=== PATIENT | male | born 1945 | race Caucasian/White ===

== ENCOUNTER 2024-06-24 15:09 | Inpatient (IN) ==
[2024-06-24 16:17] LABS: Base Excess VBG -2.9 mEq/L; HCO3 VBG 21 mmol/L; Oxygen Saturation VBG 92.6 %; PCO2 VBG 33 mmHg (38-50); PO2 VBG 76 mmHg; pH VBG 7.41 (7.36-7.41)
[2024-06-24 16:31] LABS: Basophils # (auto) 0.04 K/uL (0.00-0.20); Basophils % (auto) 0.2 %; Eosinophils # (auto) 0.04 K/uL (0.00-0.50); Eosinophils % (auto) 0.2 %; Hematocrit (blood only) 32.4 % (42.0-52.0); Hemoglobin 10.6 g/dl (14.0-18.0); Immature Granulocytes % (auto) 1.7 %; Lymphocytes # (auto) 0.41 K/uL (1.20-3.40); Lymphocytes % (auto) 2.3 %; Mean Corpuscular Hemoglobin 31.9 pg (25.0-34.0); Mean Corpuscular Hgb Conc 32.7 g/dL (32.0-36.0); Mean Corpuscular Volume 97.6 fL (80.0-100.0); Mean Platelet Volume 9.3 fL (9.4-12.4); Monocytes # (auto) 1.03 K/uL (0.11-0.59); Monocytes % (auto) 5.9 %; Neutrophils # (auto) 15.64 K/uL (1.40-6.50); Neutrophils % (auto) 89.7 %; Nucleated RBC # (auto) 0.03 K/uL (0.00-0.12); Nucleated RBC % (auto) 0.2 %; Platelet Count 130 K/uL (130-400); RDW Coefficient of Variation 14.9 % (11.5-14.5); RDW Standard Deviation 53.1 fL (36.4-46.3); Red Blood Count 3.32 M/uL (4.70-6.10); White Blood Count 17.46 K/ul (4.8-10.8)
[2024-06-24 16:40] LABS: BUN Creatinine Ratio 20.5 (10-20); Calcium 9.5 mg/dl (8.6-10.3); Creatinine Clr Calc Pharmacy 20.6 ml/min; Est GFR (African American) 19.2 ml/min; Est GFR (Non-African American) 16.6 ml/min; Potassium 4.2 mmol/L (3.5-5.1)
[2024-06-24 16:48] LABS: Troponin I High Sensitivity 57.4 pg/ml (0-20)
[2024-06-24 16:50] LABS: Partial Thromboplastin Time 27 Seconds (21-31); Prothrombin Time 11.1 Seconds (9.0-12.0)
--- NOTE | 2024-06-24 16:52 | XRay Report ---
XR chest 2V PA/lateral CLINICAL HISTORY: Chest pain, nonspecific TECHNIQUE: 2 views of the chest were obtained. Comparison: Comparison is made to chest radiograph 07/20/2010 FINDINGS: No lines and tubes are seen. The cardiomediastinal silhouette is normal. The lungs are clear. No evid ence of pleural effusion or pneumothorax. IMPRESSION: No acute chest disease. ACT 112: Negative or not required by law. Electronically signed by: Gomez Ortez M.D. 06/24/2024 4:50 PM
[2024-06-24 16:53] LABS: Influenza A virus by PCR Negative (Neg); Influenza B virus by PCR Negative (Neg); RSV by PCR Negative (Neg); SARS CoV2 RNA(COVID-19) Ceph NEGATIVE (Negative)
[2024-06-24 17:09] LABS: D Dimer 3520 ug/L FEU (0-500)
[2024-06-24 17:28] LABS: Appearance Urine Cloudy (Clear); Bacteria Urine Automated None Seen (None Seen); Bilirubin Urine Negative (Negative); Blood Urine 3+ (Negative); Color Urine Yellow; Glucose Urine UA 1+ (Negative); Ketones Urine Negative (Negative); Leukocyte Esterase Urine Negative (Negative); Nitrite Urine Negative (Negative); Protein Urine 3+ (Negative); RBC Urine Automated 0-2 /hpf (0-2); Specific Gravity Urine 1.019 (1.000-1.030); Urobilinogen Urine Negative (Negative); WBC Urine Automated 0-5 /hpf (0-5); pH Urine 5.5 (4.5-7.5)
--- NOTE | 2024-06-24 17:31 | History & Physical Report ---
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 CBC, BMP, mag (2) Acute kidney injury superimposed on chronic kidney disease: Plan: BUN 68, creatinine 3.32 (he reports that his baseline is around 1.9), EGFR 16.6 Avoid nephrotoxic agents where possible Hx of kidney stones, but denies flank pain or new back pain A/P CT without contrast ordered, pending Hold lisinopril Gentle IVF overnight and continue to trend BMP (3) Hematuria: Plan: 1 episode of urinary/fecal incontinence due to patient's inability get out of bed Not bulmaro incontinence Patient knew that he needed to use the restroom, but was unable to get up due to weakness/back pain UA 3+ blood on arrival Hgb 10.6 on arrival; continue to trend H&H Patient reports he had blood clots in his urine on the evening of 06/23; ?passed nephrolithiasis at this time (4) Leukocytosis: Plan: Leukocytosis 17.46 with neutrophil predominance; afebrile However, patient is currently on steroids; leukocytosis may be secondary to this UA negative for bacteria CXR without acute findings, but given SOB potential occult PNA Chest CT pending (5) Anemia: (6) Prostate cancer: (7) Hyperlipidemia: (8) Hypertension: (9) CKD (chronic kidney disease): (10) Elevated troponin: Plan Disposition: Admit to [facility] telemetry Full code Heart healthy diet VTE PPx: Heparin pending above imaging/labs History of Present Illness Chief Complaint: SOB, urinary/fecal incontinence, hematuria Primary Care Provider: Lucille Rodriguez MD Armando is a pleasant 78-year-old male with PMH of HLD, HTN, prostate cancer, left upper lobe lung cancer, COPD, and CKD. He presented on 06/24 for SOB x 1 month with an acute exacerbation on the evening of 06/23. Patient's (Maryann) is at the bedside and provides additional updates. She reports that his breathing worsened around 9 PM. He then experienced an episode of bowel/urinary incontinence while in bed around 3 AM; patient reportedly woke up in bed and felt the urge to go, but felt his body was too weak to get up. Patient reports his breathing has been worse over the past month; he denies SOB at rest, and reports it is only with exertion. It is not worse when he lies flat on his back. Patient lives in [place], but returned to [place] 1 month ago. 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 Patient has all his labs drawn in [place], and believes that his creatinine baseline is around 1.9. He was also recently diagnosed with COPD (PFTs in [place]), and has been on 2 inhalers since around April 12. He denies being around any sick contacts recently. No supplemental oxygen at baseline. No CPAP at night. Patient did not take his regular morning medications today; no recent change in medications. He does take Zytiga (an androgen kumar) for his prostate cancer, and also reports that he takes prednisone daily for the Zytiga. He is a former current tobacco cigarette smoker; quit 15 years ago. No recent alcohol use. No recent change in diet; patient does not watch his salt intake, but denies any recent changes in weight. He does have a history of kidney stones, with the last been being around 20 years ago. He has chronic lower back pain; no recent change in back pain. No saddle anesthesia. 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 No history of [place] or CHF to his knowledge; he does have heart stents and takes aspirin daily. Reports compliance with this. Patient's vitals are stable at time admission. ED course: ROS: Patient endorses essential tremor (chronic, but worse the past 24h), lightheaded with walking, fatigue, worsening LAST, one episode of urinary/fecal incontinence, lower back pain (chronic; not new, per patient), blood clot in urine, and mild b/l leg swelling. Patient denies fever, chills, night-sweats, dizziness, headache, changes in vision, chest pain, SOB, cough, pleuritic CP, hemoptysis, abdominal pain, N/V/D, blood in stool, saddle anesthesia, or erythema/numbness/tingling in the legs. Allergies Allergy/AdvReac Type Severity Reaction Status Date / Time regadenoson [From Fatsoma] Allergy Severe Anaphylaxis Verified 06/24/24 19:33 Sulfa (Sulfonamide Allergy Unknown UNKNOWN Verified 06/24/24 19:30 Antibiotics) Home Medications Medication Instructions Recorded Confirmed Type ascorbic acid (vitamin C) 1,000 mg 1 g PO Q6H #120 tabs 08/25/21 06/24/24 Rx tablet aspirin 81 mg tablet,delayed 81 mg PO DAILY #30 tabs 08/25/21 06/24/24 Rx release cholecalciferol (vitamin D3) 25 25 mcg PO DAILY #30 caps 08/25/21 06/24/24 Rx mcg (1,000 unit) capsule ferrous sulfate 325 mg (65 mg 325 mg PO DAILY #30 tabs 08/25/21 06/24/24 Rx iron) tablet (FeroSul) lisinopril 20 mg tablet 20 mg PO BID #60 tabs 08/25/21 06/24/24 Rx xhefcjvy-soa-cjlbg acid 0.4 1 tab PO DAILY #30 tabs 08/25/21 06/24/24 Rx mg-lycopene 300 mcg-lutein 250 mcg tablet (Centrum Silver) omega 0-uqr-zfm-fish oil 1,200 mg 1 cap PO DAILY #30 caps 08/25/21 06/24/24 Rx (144 mg-216 mg) capsule (Fish Oil) albuterol sulfate 90 mcg/actuation 2 puff inhalation Q4H PRN 06/24/24 06/24/24 History aerosol inhaler wheezing/SOB amlodipine 5 mg tablet (Norvasc) 5 mg PO BID 06/24/24 06/24/24 History clonidine HCl 0.1 mg tablet 0.1 mg PO BID 06/24/24 06/24/24 History coQ10 (ubiquinol) 200 mg capsule 200 mg PO DAILY 06/24/24 06/24/24 History dapagliflozin propanediol 10 mg 0 mg PO HS 06/24/24 06/24/24 History tablet (Farxiga) fluticasone fur. 200 mcg-umeclid 1 inh inhalation DAILY 06/24/24 06/24/24 History 62.5 mcg-vilant 25 mcg inhalat.powder (Trelegy Ellipta) nebivolol 20 mg tablet 20 mg PO DAILY 06/24/24 06/24/24 History omeprazole 20 mg-sodium 1 cap PO DAILY 06/24/24 06/24/24 History bicarbonate 1.1 gram capsule (Zegerid OTC) rosuvastatin 20 mg tablet 20 mg PO DAILY 06/24/24 06/24/24 History Past Med/Surg History Problem List (Updated 06/24/24 @ 20:06 by Roberto Lambert PA-C) Elevated troponin Acute kidney injury superimposed on CKD (Acute) Leukocytosis Acute kidney injury superimposed on chronic kidney disease SOB (shortness of breath) (Acute) Hematuria Anemia CKD (chronic kidney disease) Prostate cancer Hypertension Hyperlipidemia Medical History Peritonitis Surgical History S/P cataract extraction S/P abdominoplasty S/P partial colectomy S/P lumbar fusion S/P cervical spinal fusion S/P shoulder replacement Family History Other Diabetes Denies family history of Ovarian cancer Prostate cancer Myocardial infarction Breast cancer Colorectal cancer Social History Smoking Status: Former smoker Hx Alcohol Use: Yes Hx Substance Use: No Preferred Language: [place]ian Visual Impairment: No Limitations Hearing Ability: Normal marital status: Current Living Situation: Spouse current occupational status: employed Feels Safe at Home: Yes Dental Care, Regularly: Yes Physical Activity Frequency: 5-6 Times per Week Seatbelt Use: always Review of Systems Review of Systems: See HPI above Physical Exam Physical Exam: General: no acute distress; pleasant affect; non-toxic appearing; well- nourished; cooperative; SpO2 93% on RA HEENT: normocephalic, atraumatic; no scleral icterus; PERRLA; vision and hearing grossly intact Neck: supple; no lymphadenopathy; trachea midline Skin: warm, dry without signs of tenting; no cyanosis; no rashes, bruising, lesions, or erythema noted CV: chest wall NTP; RRR; S1/S2 normal; no murmurs/rubs/gallops; pulses intact and symmetric at radial, DP, and PT Lungs: no acute respiratory distress; symmetrical chest wall expansion; clear breath sounds across all lung payne w/o adventitious sounds; no wheezing ABD: Soft, NTP; BS present; no rebound/guarding; no distention MSK: no tics or fasciculations; left calf/ankle is slightly more swollen than the right, nonerythematous Neuro: A&Ox3; essential tremor noted in the left hand; normal mood and affect; fluent speech; no focal deficits; sensation grossly intact in the LEs b/l Results & Data Results & Data Vital Signs (Past 12 Hours) Vital Signs Temp Pulse Pulse Resp BP BP Pulse Ox 06/24/24 17:05 69 18 119/69 93 06/24/24 15:56 72 06/24/24 15:55 93 06/24/24 15:35 75 19 111/73 93 06/24/24 15:12 36.7 C 81 18 134/72 95 O2 Del Method 06/24/24 17:05 Room Air 06/24/24 15:56 06/24/24 15:55 Room Air 06/24/24 15:35 Room Air 06/24/24 15:12 Room Air Laboratory Results Abnormal lab results 06/24/24 06/24/24 06/24/24 Range/Units 15:40 16:05 16:24 WBC 17.46 H (4.8-10.8) K/ul RBC 3.32 L (4.70-6.10) M/uL Hgb 10.6 L (14.0-18.0) g/dl Hct 32.4 L (42.0-52.0) % RDW Std Deviation 53.1 H (36.4-46.3) fL RDW Coeff of Aniceto 14.9 H (11.5-14.5) % MPV 9.3 L (9.4-12.4) fL Neut # (Auto) 15.64 H (1.40-6.50) K/uL Lymph # (Auto) 0.41 L (1.20-3.40) K/uL Newton # (Auto) 1.03 H (0.11-0.59) K/uL Immature Gran # (Auto) 0.30 H (0.01-0.20) K/uL D-Dimer 3520 H* (0-500) ug/L FEU VBG pCO2 33 L (38-50) mmHg Chloride 108 H (98-107) mmol/L BUN 68 H (6-23) mg/dl Creatinine 3.32 H (0.6-1.4) mg/dl BUN/Creatinine Ratio 20.5 H (10-20) Troponin I High Sens 57.4 H* (0-20) pg/ml B-Natriuretic Peptide 674 H (0-100) pg/ml Urine Appearance Cloudy A (Clear) Urine Protein 3+ H (Negative) Urine Glucose (UA) 1+ H (Negative) Urine Blood 3+ H (Negative) U Hyaline Cast (Auto) 6-10 H (0-2) /lpf U Epithel Cells (Auto) 6-10 H (0-2) /hpf Diagnostic Findings Chest X-Ray 06/24/24 15:54 XR chest 2V PA/lateral CLINICAL HISTORY: Chest pain, nonspecific TECHNIQUE: 2 views of the chest were obtained. Comparison: Comparison is made to chest radiograph 07/20/2010 FINDINGS: No lines and tubes are seen. The cardiomediastinal silhouette is normal. The lungs are clear. No evidence of pleural effusion or pneumothorax. IMPRESSION: No acute chest disease. ACT 112: Negative or not required by law. Electronically signed by: Gomez Ortez M.D. 06/24/2024 4:50 PM ECG Additional Comments: ECG revealed sinus rhythm with PACs in a pattern of bigeminy at 72 bpm; QTc 396 Code Status & VTE Plan Code Status Full code VTE Prophylaxis Plan VTE Prophylaxis will be ordered: Yes Supervising Physician Co-Signing Physician Notes I have personally seen, evaluated and examined the patient. I have also personally discussed the management of the patient with the resident physician/GURPREET and I agree with the exam findings documented in the history and physical examination and the documented assessment and plan unless otherwise stated below. Brief Exam: In general very pleasant 78-year-old gentleman is alert and oriented x 3 at the time of my exam is accompanied by his at the time of my examination. Says he woke up in the middle night with severe low back pain. He was unable to get out of bed to use the restroom and had "an accident". When he did passed a blood clot he said it was like a cork being pulled. Question whether or not patient may be passed a kidney stone last night?. HEENT: Normocephalic atraumatic. Heart: Regular rate and rhythm. Lungs: Clear bilaterally. Abdomen: Soft nontender positive bowel sounds no appreciable organomegaly. Extremities intact with no significant edema Neurologically is alert and oriented x 3 at the time of my examination. Assessment/plan: As described above. 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 He reports that his baseline creatinine 1.9. He states that his barrel filler in [place] gave him an outpatient slip to get a CTA of his chest given his shortness of breath with exertion. He is yet to have that done. Shortly now we cannot progress with a CTA of the chest given the acute kidney injury. If the CAT scans of the abdomen pelvis and chest are unremarkable and if his ultrasounds of his legs are unremarkable due to the high D-dimer, we would recommend a VQ scan in the morning. The patient is on chronic prednisone therapy the patient reports a chronic prednisone use due to prostate cancer his urologist has him on this. If his blood pressures are dropping consider stress dose steroids. CTs are pending as well as ultrasounds pending at the time of this dictation. Please refer to orders for further planning. PG Care Time/CCT Total # of Minutes Spent Total Time Spent with Patient: Total time spent is greater than 50% in coordination of care (as documented) at patient's floor/unit and/or counseling patient: [place] [address] INT INP/OBS CARE 3/75MIN Patient Type New History Comprehensive Exam Comprehensive Medical Decision Making High Complexity Diagnoses SOB (shortness of breath) R06.02 Acute kidney injury superimposed on chronic kidney disease N17.9; N18.9 Hematuria R31.9 Leukocytosis D72.829 Anemia D64.9 Prostate cancer C61 Hyperlipidemia E78.5 Hypertension I10 CKD (chronic kidney disease) N18.9 Elevated troponin R79.89
--- NOTE | 2024-06-24 18:48 | Emergency Department Note ---
History of Present Illness General Chief Complaint: Shortness of Breath/Dyspnea Stated Complaint: SOB, INCONSTIENCE, LETHARGIC Time Seen by Provider: 06/24/24 15:35 History of Present Illness Provider Complaint: shortness of breath Onset (ago): day(s) (1) Severity: moderate Relieved By: + nothing Known history of: COPD Associated symptoms: + wheezing; no fever, no sputum production, no polyuria, no palpitations, no hemoptysis, no abdominal pain or no chest congestion Related Data Home oxygen amount: none Home Medications Medication Instructions Recorded Confirmed Type amlodipine 5 mg tablet (Norvasc) 5 mg PO DAILY #30 tabs 08/25/21 08/25/21 Rx ascorbic acid (vitamin C) 1,000 mg 1 g PO Q6H #120 tabs 08/25/21 08/25/21 Rx tablet aspirin 81 mg tablet,delayed 81 mg PO DAILY #30 tabs 08/25/21 08/25/21 Rx release cholecalciferol (vitamin D3) 25 25 mcg PO DAILY #30 caps 08/25/21 08/25/21 Rx mcg (1,000 unit) capsule clonidine HCl 0.1 mg tablet 0.1 mg PO QPM #30 tabs 08/25/21 08/25/21 Rx ferrous sulfate 325 mg (65 mg 325 mg PO DAILY #30 tabs 08/25/21 08/25/21 Rx iron) tablet (FeroSul) lisinopril 20 mg tablet 20 mg PO BID #60 tabs 08/25/21 08/25/21 Rx metoprolol succinate 50 mg 50 mg PO BID #60 tabs 08/25/21 08/25/21 Rx tablet,extended release 24 hr (Toprol XL) aixiqygp-tct-zenbg acid 0.4 1 tab PO DAILY #30 tabs 08/25/21 08/25/21 Rx mg-lycopene 300 mcg-lutein 250 mcg tablet (Centrum Silver) omega 2-yot-bzb-fish oil 1,200 mg 1 cap PO DAILY #30 caps 08/25/21 08/25/21 Rx (144 mg-216 mg) capsule (Fish Oil) omeprazole 20 mg capsule,delayed 20 mg PO DAILY #30 caps 08/25/21 08/25/21 Rx release rosuvastatin 20 mg tablet (Crestor) 20 mg PO DAILY #30 tabs 08/25/21 08/25/21 Rx Allergies Allergy/AdvReac Type Severity Reaction Status Date / Time regadenoson [From Lexiscan] Allergy Mild Anaphylaxis Verified 08/25/21 15:00 Sulfa (Sulfonamide Allergy Unknown UNKNOWN Verified 08/25/21 15:00 Antibiotics) Past Med/Surg History Problem List (Updated 06/24/24 @ 18:48 by Gary Aguero MD) Acute kidney injury superimposed on CKD (Acute) Leukocytosis Acute kidney injury superimposed on chronic kidney disease SOB (shortness of breath) (Acute) Urinary incontinence Hematuria Anemia CKD (chronic kidney disease) Prostate cancer Hypertension Hyperlipidemia Medical History Peritonitis Surgical History S/P cataract extraction S/P abdominoplasty S/P partial colectomy S/P lumbar fusion S/P cervical spinal fusion S/P shoulder replacement Family History Other Diabetes Denies family history of Ovarian cancer Prostate cancer Myocardial infarction Breast cancer Colorectal cancer Social History Smoking Status: Former smoker Hx Alcohol Use: Yes Hx Substance Use: No Preferred Language: Serbian Visual Impairment: No Limitations Hearing Ability: Normal marital status: Current Living Situation: Spouse current occupational status: employed Feels Safe at Home: Yes Dental Care, Regularly: Yes Physical Activity Frequency: 5-6 Times per Week Seatbelt Use: always Physical Exam 2 Vital Signs: Vital Signs - 24 hr 06/24/24 15:12 06/24/24 15:35 06/24/24 15:55 Temperature 36.7 C Temperature Source Skin Pulse Rate 81 Pulse Rate [Apical ] 75 Pulse Rhythm Regular Pulse Strength Normal Respiratory Rate 18 19 Respiratory Depth Normal Blood Pressure 134/72 Blood Pressure [Le ft Arm] 111/73 Blood Pressure Lisa n 92 Blood Pressure Lisa n [Left Arm] 85 Blood Pressure Pos ition Sitting Pulse Oximetry 95 93 93 Oxygen Delivery Me thod Room Air Room Air Room Air Sepsis Recent Feve r Within 48 Hours No Sepsis New/Unexpla ined Change in Men tanner Status No Sepsis Action Take n by Nursing No Action Required 06/24/24 15:56 06/24/24 17:05 06/24/24 17:30 Temperature Temperature Source Pulse Rate 72 Pulse Rate [Apical ] 69 71 Pulse Rhythm Pulse Strength Respiratory Rate 18 14 Respiratory Depth Blood Pressure Blood Pressure [Le ft Arm] 119/69 119/70 Blood Pressure Lisa n Blood Pressure Lisa n [Left Arm] 85 86 Blood Pressure Pos ition Pulse Oximetry 93 94 Oxygen Delivery Me thod Room Air Room Air Sepsis Recent Feve r Within 48 Hours Sepsis New/Unexpla ined Change in Men tanner Status Sepsis Action Take n by Nursing 06/24/24 18:00 Temperature Temperature Source Pulse Rate Pulse Rate [Apical ] 66 Pulse Rhythm Pulse Strength Respiratory Rate 18 Respiratory Depth Blood Pressure Blood Pressure [Le ft Arm] 138/74 Blood Pressure Lisa n Blood Pressure Lisa n [Left Arm] 95 Blood Pressure Pos ition Pulse Oximetry 93 Oxygen Delivery Me thod Room Air Sepsis Recent Feve r Within 48 Hours Sepsis New/Unexpla ined Change in Men tanner Status Sepsis Action Take n by Nursing Physical Exam: Physical Exam GENERAL: oriented to person, place, and time. appears well-developed and well- nourished. HENT: Exam performed. - Head: Normocephalic and atraumatic. EYES: Conjunctivae and EOM are normal. Right eye exhibits no discharge. Left eye exhibits no discharge. No scleral icterus. NECK: Normal range of motion. Neck supple. No JVD present. CV: Normal rate, regular rhythm, normal heart sounds and intact distal pulses. There is no peripheral edema. Palpable radial pulses bue. PULM/CHEST: Effort normal and breath sounds normal. No respiratory distress. No stridor. no wheezes. no rales. ABD: The abdomen is soft. There is no tenderness. NEURO: Motor and sensation grossly intact. SKIN: Skin is warm and dry. He is not diaphoretic. PSYCH: normal mood and affect. Behavior is normal. Judgment and thought content normal. Course Course 1535: The patient was evaluated in room A9. A complete history and physical exam was performed Cardiac monitoring: An order was placed for continuous cardiac monitoring. The monitor shows a rate of 70 with sinus rhythm interpreted by me 1740: Vital signs stable. Labs show leukocytosis of 17.46. Hemoglobin 10.6. D-dimer 3520. VBG shows a venous pH of 7.41 with a venous pCO2 of 33. Electrolytes are within normal limits. BNP 674. High-sensitivity troponin 57.4. Creatinine 3.32. Patient reports his creatinine is usually around 1.9. Urinalysis does not show any bacteria in it. COVID-negative. Patient not reporting any abdominal pain. Chest x-ray reviewed by me shows mild fluid overload however formal radiology read states there is no fluid overload. [facility] who states he will evaluate the patient for admission. Medical Decision Making Laboratory Data Attestation: I reviewed the patient's lab results. 06/24/24 15:40 06/24/24 15:40 Lab Results 06/24/24 06/24/24 06/24/24 Range/Units 15:40 16:04 16:05 WBC 17.46 H (4.8-10.8) K/ul RBC 3.32 L (4.70-6.10) M/uL Hgb 10.6 L (14.0-18.0) g/dl Hct 32.4 L (42.0-52.0) % MCV 97.6 (80.0-100.0) fL MCH 31.9 (25.0-34.0) pg MCHC 32.7 (32.0-36.0) g/dL RDW Std Deviation 53.1 H (36.4-46.3) fL RDW Coeff of Aniceto 14.9 H (11.5-14.5) % Plt Count 130 (130-400) K/uL MPV 9.3 L (9.4-12.4) fL Immature Gran % (Auto) 1.7 % Neut % (Auto) 89.7 % Lymph % (Auto) 2.3 % Ransom % (Auto) 5.9 % Eos % (Auto) 0.2 % Baso % (Auto) 0.2 % Neut # (Auto) 15.64 H (1.40-6.50) K/uL Lymph # (Auto) 0.41 L (1.20-3.40) K/uL Ransom # (Auto) 1.03 H (0.11-0.59) K/uL Eos # (Auto) 0.04 (0.00-0.50) K/uL Baso # (Auto) 0.04 (0.00-0.20) K/uL Immature Gran # (Auto) 0.30 H (0.01-0.20) K/uL Absolute Nucleated RBC 0.03 (0.00-0.12) K/uL Nucleated RBC % (auto) 0.2 % PT 11.1 (9.0-12.0) Seconds INR 1.0 (0.9-1.1) APTT 27 (21-31) Seconds PTT Ratio 1.0 D-Dimer 3520 H* (0-500) ug/L FEU VBG pH 7.41 (7.36-7.41) VBG pCO2 33 L (38-50) mmHg VBG pO2 76 mmHg VBG HCO3 21 mmol/L VBG O2 Saturation 92.6 % VBG Base Excess -2.9 mEq/L Sodium 139 (136-145) mmol/L Potassium 4.2 (3.5-5.1) mmol/L Chloride 108 H (98-107) mmol/L Carbon Dioxide 22 (21-32) mmol/L Anion Gap 9 (3-11) BUN 68 H (6-23) mg/dl Creatinine 3.32 H (0.6-1.4) mg/dl Est Cr Clr Drug Dosing 20.6 ml/min Est GFR ( Amer) 19.2 ml/min Est GFR (Non-Af Amer) 16.6 ml/min BUN/Creatinine Ratio 20.5 H (10-20) Glucose 94 (70-99(Fasting)) mg/dl Calcium 9.5 (8.6-10.3) mg/dl Troponin I High Sens 57.4 H* (0-20) pg/ml B-Natriuretic Peptide 674 H (0-100) pg/ml Lipase 43 (11-82) U/L Urine Color Urine Appearance (Clear) Urine pH (4.5-7.5) Ur Specific [place] (1.000-1.030) Urine Protein (Negative) Urine Glucose (UA) (Negative) Urine Ketones (Negative) Urine Blood (Negative) Urine Nitrite (Negative) Urine Bilirubin (Negative) Urine Urobilinogen (Negative) Ur Leukocyte Esterase (Negative) Urine WBC (Auto) (0-5) /hpf Urine RBC (Auto) (0-2) /hpf U Hyaline Cast (Auto) (0-2) /lpf U Epithel Cells (Auto) (0-2) /hpf Urine Bacteria (Auto) (None Seen) SARS-CoV-2 (PCR) NEGATIVE (Negative) Influenza Type A (PCR) Negative (Neg) Influenza Type B (PCR) Negative (Neg) RSV (RT-PCR) Negative (Neg) 06/24/24 06/24/24 Range/Units 16:24 17:50 WBC (4.8-10.8) K/ul RBC (4.70-6.10) M/uL Hgb (14.0-18.0) g/dl Hct (42.0-52.0) % MCV (80.0-100.0) fL MCH (25.0-34.0) pg MCHC (32.0-36.0) g/dL RDW Std Deviation (36.4-46.3) fL RDW Coeff of Aniceto (11.5-14.5) % Plt Count (130-400) K/uL MPV (9.4-12.4) fL Immature Gran % (Auto) % Neut % (Auto) % Lymph % (Auto) % Ransom % (Auto) % Eos % (Auto) % Baso % (Auto) % Neut # (Auto) (1.40-6.50) K/uL Lymph # (Auto) (1.20-3.40) K/uL Ransom # (Auto) (0.11-0.59) K/uL Eos # (Auto) (0.00-0.50) K/uL Baso # (Auto) (0.00-0.20) K/uL Immature Gran # (Auto) (0.01-0.20) K/uL Absolute Nucleated RBC (0.00-0.12) K/uL Nucleated RBC % (auto) % PT (9.0-12.0) Seconds INR (0.9-1.1) APTT (21-31) Seconds PTT Ratio D-Dimer (0-500) ug/L FEU VBG pH (7.36-7.41) VBG pCO2 (38-50) mmHg VBG pO2 mmHg VBG HCO3 mmol/L VBG O2 Saturation % VBG Base Excess mEq/L Sodium (136-145) mmol/L Potassium (3.5-5.1) mmol/L Chloride (98-107) mmol/L Carbon Dioxide (21-32) mmol/L Anion Gap (3-11) BUN (6-23) mg/dl Creatinine (0.6-1.4) mg/dl Est Cr Clr Drug Dosing ml/min Est GFR ( Amer) ml/min Est GFR (Non-Af Amer) ml/min BUN/Creatinine Ratio (10-20) Glucose (70-99(Fasting)) mg/dl Calcium (8.6-10.3) mg/dl Troponin I High Sens 57.4 H* (0-20) pg/ml B-Natriuretic Peptide (0-100) pg/ml Lipase (11-82) U/L Urine Color Yellow Urine Appearance Cloudy A (Clear) Urine pH 5.5 (4.5-7.5) Ur Specific [place] 1.019 (1.000-1.030) Urine Protein 3+ H (Negative) Urine Glucose (UA) 1+ H (Negative) Urine Ketones Negative (Negative) Urine Blood 3+ H (Negative) Urine Nitrite Negative (Negative) Urine Bilirubin Negative (Negative) Urine Urobilinogen Negative (Negative) Ur Leukocyte Esterase Negative (Negative) Urine WBC (Auto) 0-5 (0-5) /hpf Urine RBC (Auto) 0-2 (0-2) /hpf U Hyaline Cast (Auto) 6-10 H (0-2) /lpf U Epithel Cells (Auto) 6-10 H (0-2) /hpf Urine Bacteria (Auto) None Seen (None Seen) SARS-CoV-2 (PCR) (Negative) Influenza Type A (PCR) (Neg) Influenza Type B (PCR) (Neg) RSV (RT-PCR) (Neg) Imaging Data Attestation: I personally reviewed and interpreted this imaging study as follows: My Impression: Chest x-ray: Mild fluid overload Radiologist's Impression: Chest X-Ray 06/24/24 15:54 XR chest 2V PA/lateral CLINICAL HISTORY: Chest pain, nonspecific TECHNIQUE: 2 views of the chest were obtained. Comparison: Comparison is made to chest radiograph 07/20/2010 FINDINGS: No lines and tubes are seen. The cardiomediastinal silhouette is normal. The lungs are clear. No evidence of pleural effusion or pneumothorax. IMPRESSION: No acute chest disease. ACT 112: Negative or not required by law. Electronically signed by: Gomez Ortez M.D. 06/24/2024 4:50 PM ECG Data Attestation: I personally reviewed and interpreted this ECG as follows: Interpretation: Sinus rhythm with a rate of 72. AL QRS and QTc intervals are within normal limits. No ST elevation or ST depression. [facility] Narrative 1535: The patient was evaluated in room A9. A complete history and physical exam was performed Cardiac monitoring: An order was placed for continuous cardiac monitoring. The monitor shows a rate of 70 with sinus rhythm interpreted by me 1740: Vital signs stable. Labs show leukocytosis of 17.46. Hemoglobin 10.6. D-dimer 3520. VBG shows a venous pH of 7.41 with a venous pCO2 of 33. Electrolytes are within normal limits. BNP 674. High-sensitivity troponin 57.4. Creatinine 3.32. Patient reports his creatinine is usually around 1.9. Urinalysis does not show any bacteria in it. COVID-negative. Patient not reporting any abdominal pain. Chest x-ray reviewed by me shows mild fluid overload however formal radiology read states there is no fluid overload. Discussed case with [facility] hospitalist team Dr. Sanchez who states he will evaluate the patient for admission. Impression & Plan Acute kidney injury superimposed on CKD, SOB (shortness of breath) Discharge Plan Visit Data Chief Complaint: Shortness of Breath/Dyspnea Stated Complaint: SOB, INCONSTIENCE, LETHARGIC ED Provider: Gary Aguero Discharge Problem: Acute kidney injury superimposed on CKD, SOB (shortness of breath) Patient Disposition: Being Evaluated by Hospitalist Forms Stand Alone Forms: My [facility] Prescriptions Prescriptions: No Action clonidine HCl 0.1 mg tablet 0.1 mg PO QPM Qty: 30 2RF metoprolol succinate [Toprol XL] 50 mg tablet extended release 24 hr 50 mg PO BID Qty: 60 2RF lisinopril 20 mg tablet 20 mg PO BID Qty: 60 2RF amlodipine [Norvasc] 5 mg tablet 5 mg PO DAILY Qty: 30 2RF aspirin 81 mg tablet,delayed release (DR/EC) 81 mg PO DAILY Qty: 30 2RF rosuvastatin [Crestor] 20 mg tablet 20 mg PO DAILY Qty: 30 2RF cholecalciferol (vitamin D3) 25 mcg (1,000 unit) capsule 25 mcg PO DAILY Qty: 30 0RF ascorbic acid (vitamin C) 1,000 mg tablet 1 g PO Q6H Qty: 120 0RF omega 7-hod-cau-fish oil [Fish Oil] 1,200 (144-216) mg capsule 1 cap PO DAILY Qty: 30 0RF ferrous sulfate [FeroSul] 325 mg (65 mg iron) tablet 325 mg PO DAILY Qty: 30 0RF Centrum Silver 0.4-300-250 mg-mcg-mcg tablet 1 tab PO DAILY Qty: 30 0RF omeprazole 20 mg capsule,delayed release(DR/EC) 20 mg PO DAILY Qty: 30 2RF Referrals Referrals: Lucille Rodriguez MD [Primary Care Provider] -
--- NOTE | 2024-06-24 20:33 | CT Scan Report ---
Exam(s): CT CHEST Without Contrast EXAM: CT Chest Without Intravenous Contrast CLINICAL HISTORY: Reason for exam: SOB. TECHNIQUE: Axial computed tomography images of the chest without intravenous contrast. CTDI is 16.68 mGy and DLP is 1130.84 mGy-cm. Automated exposure control was utilized for the study. A dose lowering technique was utilized adhering to the principles of ALARA. COMPARISON: No relevant prior studies available. FINDINGS: Lungs: Emphysema. Bronchial wall thickening. Pleural-parenchymal scarring in the bilateral upper lobes, greatest at the left lung apex. Numerous bilateral pulmonary nodules. Largest right upper lobe nodule measures 6 mm (axial 95). Largest left upper lobe nodule measures 1.6 cm (axial image 37). Multiple additional nodules. Scattered calcified granulomas. No consolidation. Pleural space: Unremarkable. No pneumothorax. No significant effusion. Heart: Coronary artery atherosclerosis. No cardiomegaly or pericardial effusion. Mediastinum: Small hiatal hernia. Bones/joints: Unremarkable. No acute fracture. No dislocation. Soft tissues: Gynecomastia. Vasculature: Calcified thoracic aorta without aneurysm. Normal caliber main pulmonary artery. Lymph nodes: Unremarkable. No enlarged lymph nodes. Liver: Scattered benign hepatic cysts. IMPRESSION: 1. Bilateral pulmonary nodules, largest at the left lung apex measuring 1.6 cm. Fleischner Society Guidelines for high-risk patients (smoking history or other known risk factors), initial follow-up chest CT at 3-6 months and if unchanged, 18-24 months. 2. Emphysema and bronchial wall thickening. No consolidation. Electronically signed by: Aureliano Polo M.D. 06/24/24 20:33 PM
--- NOTE | 2024-06-24 20:53 | CT Scan Report ---
Exam(s): CT ABDOMEN + PELVIS Without Contrast EXAM: CT Abdomen and Pelvis Without Intravenous Contrast CLINICAL HISTORY: Reason for exam: Urinary/fecal incontinence. TECHNIQUE: Axial computed tomography images of the abdomen and pelvis without intravenous contrast. CTDI is 16.68 mGy and DLP is 1130.84 mGy-cm. Automated exposure control was utilized for the study. A dose lowering technique was utilized adhering to the principles of ALARA. COMPARISON: No relevant prior studies available. FINDINGS: Lung bases: Emphysema, bronchial wall thickening at the lung bases. No consolidation. Mediastinum: Small hiatal hernia. ABDOMEN: Liver: Benign hepatic cysts. Gallbladder and bile ducts: Unremarkable. No calcified stones. No ductal dilation. Pancreas: Unremarkable. No ductal dilation. Spleen: Unremarkable. No splenomegaly. Adrenals: Unremarkable. No mass. Kidneys and ureters: Simple and hyperdense bilateral renal cysts; no follow-up indicated. No hydronephrosis or radiopaque stones. Stomach and bowel: No bowel obstruction. Postoperative changes of the sigmoid colon. Scattered colonic diverticula. No mucosal thickening. PELVIS: Appendix: Normal appendix. Bladder: Unremarkable. No stones. Reproductive: Unremarkable as visualized. ABDOMEN and PELVIS: Intraperitoneal space: Unremarkable. No free air, significant free fluid, or fluid collection. Bones/joints: Advanced disc and facet degeneration in the lumbar spine. Grade 1 degenerative anterolisthesis of L4. Varying degrees of acquired spinal canal and foraminal narrowing. Spinal canal stenosis appears greatest at L3-L4. Moderate to severe foraminal narrowing bilaterally at L3-L4, L4-L5, and L5-S1. No acute fracture or dislocation. Osteopenia. Soft tissues: Fat-containing inguinal hernias bilaterally. Vasculature: Atherosclerosis without aortic aneurysm. Lymph nodes: Unremarkable. No enlarged lymph nodes. IMPRESSION: 1. Advanced disc and facet degeneration. Varying degrees of acquired spinal canal and foraminal narrowing. 2. Spinal canal stenosis appears greatest at L3-L4, possibly at L4-L5 as well. 3. Moderate to severe foraminal narrowing bilaterally at L3-L4, L4-L5, and L5-S1. 4. No acute inflammatory process within the abdomen/pelvis. Electronically signed by: Aureliano Polo M.D. 06/24/24 20:52 PM
[2024-06-24] MEDS ORDERED: ALBUTEROL HFA 8 GM INHALER INH PRN (21:14)
[2024-06-24] MEDS ORDERED: ACETAMINOPHEN 325 MG TAB PO PRN (21:14)
[2024-06-24] MEDS ORDERED: ONDANSETRON INJ 2 MG/ML 2 ML VIAL IV PRN (21:14)
[2024-06-24] MEDS: LACTATED RINGER'S 1,000 ML IV SCH (21:41)
--- NOTE | 2024-06-24 21:56 | Ultrasound Report ---
Exam(s): US VENOUS BILATERAL LOWER EXTREMITIES EXAM: US Duplex Bilateral Lower Extremities Veins CLINICAL HISTORY: Reason for exam: Elevated d-dimer. TECHNIQUE: Real-time duplex ultrasound scan of the bilateral lower extremity veins integrating B-mode two-dimensional vascular structure, Doppler spectral analysis, color flow Doppler imaging and compression. COMPARISON: No relevant prior studies available. FINDINGS: Right deep veins: Unremarkable. No DVT in the right common femoral, femoral, proximal deep femoral or popliteal veins. The veins demonstrate normal color flow, are normally compressible, with normal phasic flow and/or augmentation response. Right superficial veins: Unremarkable. No thrombus in the visualized right great saphenous vein. Left deep veins: Unremarkable. No DVT in the left common femoral, femoral, proximal deep femoral or popliteal veins. The veins demonstrate normal color flow, are normally compressible, with normal phasic flow and/or augmentation response. Left superficial veins: Unremarkable. No thrombus in the visualized left great saphenous vein. Soft tissues: Soft tissue edema. IMPRESSION: No evidence of acute DVT. Electronically signed by: Aureliano Polo M.D. 06/24/24 21:54 PM
[2024-06-24] MEDS ORDERED: METOPROLOL TARTRATE 100 MG TAB PO SCH (22:00)
[2024-06-24] MEDS: cloNIDine HCL 0.1 MG TAB PO SCH (22:04)
[2024-06-24] MEDS: amLODIPine BESYLATE 5 MG TAB PO SCH (22:04)
[2024-06-24] MEDS: METOPROLOL TARTRATE 50 MG TAB PO SCH (22:20)
--- OUTSIDE RECORDS SUMMARY | 2024-06-25 00:43 | External Medical Summary | Continuity of Care Document ---
Author Name Unknown Organization [facility] [address] Address [address] [place], [place] [id number] Care Team Providers Care Government Affairs Researcher Name Role Phone No, PCP Primary Care Physician Unavailab le [id number] Date(s): 06/18/24 - 06/18/24 [facility] [address] [facility] [address] [facility] [address] [place], [place] [phone] Encounter Diagnosis Secondary malignant neoplasm of bone(Final) - Malignant neoplasm of prostate(Final) - Discharge Disposition: Home or Self Care Attending Physician: GILL Vazquez Ryan Douglas Referring Physician: GILL Vazquez Ryan Douglas Allergies, Adverse Reactions, Alerts Substance Criticality Severity Reaction Reaction Severity Status sulfa drugs Active Medications Aspir 81 Start: 07/03/16 1:22:00 PM EDT Start Date: 07/03/16 Status: Ordered Crestor 20 mg oral tablet Start: 09/06/16 8:28:00 AM EDT, 1 tab, PO, Daily Start Date: 09/06/16 Status: Ordered ferrous sulfate Start: 07/03/16 1:23:00 PM EDT, 325 mg = Start Date: 07/03/16 Status: Ordered Fish Oil oral capsule Start: 07/08/13 12:22:00 PM EDT, Daily Start Date: 07/08/13 Status: Ordered lisinopril 10 mg oral tablet Start: 07/03/16 1:21:00 PM EDT, bid Start Date: 07/03/16 Status: Ordered Multiple Vitamins oral tablet Start: 07/08/13 12:23:00 PM EDT, 1 tab, PO, Daily Start Date: 07/08/13 Status: Ordered Norvasc 5 mg oral tablet Start: 08/21/19 9:20:00 AM EDT, 1 tab, PO, Daily Start Date: 08/21/19 Status: Ordered Toprol-XL 50 mg oral tablet, extended release Start: 07/08/13 12:21:00 PM EDT, 1 tab, PO, bid Start Date: 07/08/13 Status: Ordered Problem List Condition Confirmation Course Effective Dates Status Health Status Informant Trigger middle finger Confirmed Active Prostate carcinoma Confirmed Active Coronary artery disease Confirmed Active Impingement syndrome, elbow Confirmed Active HTN (hypertension) Confirmed Active Hypercholesterolemia Confirmed Active Left lumbar radiculopathy Confirmed Active Osteoarthritis Confirmed Active Left lumbar radiculitis Confirmed Active Piriformis syndrome Confirmed Active Sciatica Confirmed Active Shoulder pain 1 Confirmed Active Trigger thumb Confirmed Active Lumbar stenosis Confirmed Active Neural foraminal stenosis of lumbar spine Confirmed Active Trigger finger of right hand Confirmed Active 1right Procedures Procedure Date Related Diagnosis Body Site Status Right shoulder surgery 2004 Co mpleted C5/C6 laminectomies Compl eted hemicolectomy/ colostomy Completed L4-L5 spinal Completed L4/L5 cyst excision Compl eted Left shoulder surgery Com pleted Results Laboratory List Name Date Prostate Specific Antigen (PSA, TOTAL) Request to FAX Report (First Location) ( ACC NO TO BE FAXED) 06/18/24 Total Testosterone, LC-MS/MS (TOTAL TEST OSTERONE) 06/18/24 Most recent to oldest [Reference Range]: 1 PSA, Total [<7.21 ng/mL] <0.05 ng/mL (06/18/24 8:08 AM) Phone No [phone] (06/18/24 8:08 AM) Total Testosterone, LC-MS/MS [270-648 ng /dL] <2 ng/dL *LOW* (06/18/24 8:08 AM) 1Result Comment: Testing Performed By: Dept of Pathology [facility] [address], [address], [place] [address] Social History Social History Type Response Smoking Status Never smoked cigaret raiza Sex Male Sex Representation Male (finding) Patient Care team information Personnel Name: No, PCP
[2024-06-25 07:07] LABS: Calcium 9.2 mg/dl (8.6-10.3); Creatinine Clr Calc Pharmacy 22.5 ml/min; Est GFR (African American) 20.9 ml/min; Magnesium 1.9 mg/dl (1.7-2.4); Potassium 4.2 mmol/L (3.5-5.1)
[2024-06-25 07:08] LABS: Basophils # (auto) 0.02 K/uL (0.00-0.20); Basophils % (auto) 0.2 %; Eosinophils # (auto) 0.11 K/uL (0.00-0.50); Hematocrit (blood only) 28.3 % (42.0-52.0); Hemoglobin 9.1 g/dl (14.0-18.0); Immature Granulocytes # (auto) 0.11 K/uL (0.01-0.20); Lymphocytes # (auto) 0.44 K/uL (1.20-3.40); Lymphocytes % (auto) 4.2 %; Mean Corpuscular Hemoglobin 31.6 pg (25.0-34.0); Mean Corpuscular Hgb Conc 32.2 g/dL (32.0-36.0); Mean Corpuscular Volume 98.3 fL (80.0-100.0); Mean Platelet Volume 9.1 fL (9.4-12.4); Monocytes # (auto) 0.81 K/uL (0.11-0.59); Monocytes % (auto) 7.7 %; Neutrophils # (auto) 9.01 K/uL (1.40-6.50); Neutrophils % (auto) 85.9 %; Platelet Count 108 K/uL (130-400); RDW Standard Deviation 54.3 fL (36.4-46.3); Red Blood Count 2.88 M/uL (4.70-6.10)
[2024-06-25 07:17] LABS: Troponin I High Sensitivity 31.3 pg/ml (0-20)
[2024-06-25] MEDS: UMECLIDINIUM/VILANTEROL 62.5/25MCG 7 PUFFS/INHALER INH SCH (08:42)
[2024-06-25] MEDS: HEPARIN SOD 5,000 UNIT/0.5 ML VIAL SQ SCH (08:42)
[2024-06-25] MEDS: FLUTICASONE FUROATE 200MCG 14 PUFFS/INHALER INH SCH (08:42)
[2024-06-25] MEDS: ROSUVASTATIN CALCIUM 20 MG TAB PO SCH (08:43)
[2024-06-25] MEDS: SODIUM BICARBONATE 650 MG TAB PO SCH (08:43)
[2024-06-25] MEDS: ASPIRIN 81 MG ECTAB PO SCH (08:43)
[2024-06-25] MEDS: PANTOprazole 40 MG TAB PO SCH (08:43)
[2024-06-25] MEDS ORDERED: METOPROLOL TARTRATE 100 MG TAB PO SCH (09:00)
[2024-06-25] MEDS ORDERED: NON-FORMULARY MEDICATION (Coq10 (Ubiquinol) 200 mg Capsule) PO SCH (09:00)
--- NOTE | 2024-06-25 09:08 | Electrocardiogram Report ---
Test Reason : Blood Pressure : */* mmHG Vent. Rate : 72 BPM Atrial Rate : 72 BPM P-R Int : 172 ms QRS Dur : 82 ms QT Int : 362 ms P-R-T Axes : 78 4 12 degrees QTcB Int : 396 ms Sinus rhythm with Premature atrial complexes in a pattern of bigeminy Otherwise normal ECG When compared with ECG of 20-Jul-2010 16:21, Premature atrial complexes now present Confirmed by Pasquale Ronquillo ([id number]) on 06/25/2024 9:08:32 AM Referred By: Confirmed By: Pasquale Ronquillo
--- NOTE | 2024-06-25 10:08 | XCELERA ---
[id number] \\[id number]
[2024-06-25] MEDS: LACTATED RINGER'S 1,000 ML IV SCH (11:44)
[2024-06-25] MEDS: AZITHROMYCIN 250 MG TAB PO ONE (14:11)
[2024-06-25] MEDS: predniSONE 20 MG TAB PO STA (14:11)
--- NOTE | 2024-06-25 14:19 | Medical Student Progress Note ---
Date of Service June 25, 2024 Assessment & Plan (1) SOB (shortness of breath): Plan: Worsening LAST x 1 month, with an acute exacerbation the evening of 06/23 CXR on arrival without acute findings Chest CT with bilateral pulmonary nodules, largest at the left lung apex measuring 1.6 cm - per radiologist, recommended CT follow-up at 3-6 months; sees a machine sneller. Emphysema and bronchial wall thickening. No consolidation COVID, flu, RSV negative D-Dimer elevated at 3520, but can not obtain CTA in the setting of DEEJAY - Hx of unprovoked RLE DVT 30y ago; not currently on anticoagulation - Lower extremity dopplers negative for acute DVT - Would consider V/Q scan. However, given patient is not dyspneic, tachypneic, tachycardic, or hypoxic, low suspicion for PE. BNP levated at 674 (no prior for comparison) - patient does not have crackles/rales on exam, extremity edema, or otherwise appear to have symptoms of CHF. Echocardiogram ordered - LV systolic function is normal, no regional wall motion abnormality, LVEF 60-65% Etiology of SOB seems to be d/t combination of poor COPD control/COPD exacerbation and dehydration, likely in large part d/t the COPD. - COPD symptoms have been worsening since he returned to [place] from [place] about 1 month ago, and reports his seasonal allergies worsened at that time as well - Prescribed azithromycin 250 mg QD, prednisone 40 mg QD, Fluticasone Furoate (Flonase) nasal spray - Supplemental oxygen as needed - Continuous pulse oximetry - A.m. CBC, BMP - DVT PPx: SQ heparin q12h (2) Acute kidney injury superimposed on chronic kidney disease: Plan: BUN 62, creatinine 3.1 today from 3.32 yesterday (he reports that his baseline is around 1.9), EGFR 18.0 Electrolytes stable Avoid nephrotoxic agents where possible Hx of kidney stones, but denies flank pain or new back pain A/P CT without contrast ordered - degenerative spine changes but no radiopaque kidney stones, concerning kidney masses, or other A/P findings Suspect patient's DEEJAY is largely driven by dehydration. - While he does consume about 70-80 oz of water per day, he works out a lot and has spent recent time outside in the warm temperatures. - Seeing as patient's Cr improved with IVF overnight, we will continue maintenance IVF with Lactated Ringer's 1,000 mls @ 125 mls/hr IV q8h. - Continue holding lisinopril (3) Hematuria: Plan: 1 episode of urinary/fecal incontinence due to patient's inability get out of bed Not bulmaro incontinence Patient knew that he needed to use the restroom, but was unable to get up due to weakness/back pain UA 3+ blood on arrival Hgb 10.6 on arrival, 9.1 today though likely dilutional Patient reports he had blood clots in his urine on the evening of 06/23 - Patient has no radiopaque kidney stones on CT A/P - No lesions concerning for renal malignancy on CT A/P - Could be d/t UTI, but patient does not have dysuria or fever/chills/abdominal pain/nausea or other systemic signs worrisome for infection. He has remained stable and without any more episodes of bulmaro hematuria w/o abx, so we will not begin any UTI-targeted abx. - Within the next few months, patient should have cystoscopy performed as hematuria could be d/t bladder malignancy (4) Leukocytosis: Plan: Leukocytosis 17.46 with neutrophil predominance yesterday; afebrile --> improved to 10.5 today may be secondary to chronic steroid use vs. COPD exacerbation UA negative for bacteria CXR and CT chest without acute findings, no concern for PNA (5) Anemia: (6) Prostate cancer: (7) Hyperlipidemia: (8) Hypertension: (9) CKD (chronic kidney disease): (10) Elevated troponin: Plan [facility] VTE PPx: SQ heparin q12h Admission and Anticipated Discharge Date Admission Date: June 24, 2024 Supervising Attestation I personally examined the patient and verified all redmond points of history and exam, discussed case, and agree with decision making with Dr Meeks and Olegario López MS4 Relates in HPI going back to about April slowly worsening prior to admissionaround that time he started to have a worse cough and change in sputum as well as a mild but noticeable and persistent degree of worse dyspnea on exertion. At the same time he is still been able to walk his dog and go to the gym more or less every day. However, his breathing was slowly worsening. They came back to [place] around May, he noted worsening of allergic type symptoms and congestion then as wellas he does every year when they are here. As far as fluid intake, cataloging how much he drinks every day, it sounds consistent with 60-80 ounces, although he does take a walk and go to the gym for what sounds to be several hours every day. left elbow pain started few days after a fairly good workout. Vitals noted in general he is awake and alert, pleasant no distress. Lungs are diminished throughout with faint right upper lung field wheezing, no rhonchi good effort no accessory muscle use room air no conversational dyspnea. Skin without rashes pallor or icterus. Neuro without focal deficits. Left elbow with mild diffuse tenderness around the elbow, largely around his distal triceps tendon, to a lesser degree extensor tendons from his wrist/epicondyle region. No joint effusions or bursa effusions/fluctuance palpable Dyspnea on exertionseems most consistent with his COPDit sounds like this is a new diagnosis, unclear severityhis machine sneller in [place] started him on Trelegy recently, as well as what sounds to be albuterol as needed. His had his patient portal upand while the COPD diagnosis was present there unfortunately I could find no report/reference to his pulmonary function tests, she gave me the office phone number and I tried to Mell was transferred to their records department and disconnected, and whenever I called the phone number I was given it was a fairly nondescript phone tree that did not seem to have a link for physician obtaining records or even patient obtaining records. Given that his symptoms seem to be consistent with uncontrolled COPDbut he is already on triple therapy with inhalers as well as as needed albuterolwe will manage as though there is a bit of an exacerbationhis symptoms as far as worsening dyspnea on exertion any new purulent cough would certainly fit the criteria, and at the same time the duration being 2 months or so instead of a fairly quick ramp-up does make me wonder how much of this might be related to his baseline COPD (trying to obtain his PFT results would be insightfulespecially given his CT of his chest), and how much might be related to [place] exacerb[place] Continue his Trelegy, continue albuterol as needed. Add azithromycin for now, prednisone 40 mg for now. As it relates to the allergic sideFlonase twice daily. Follow closely. Acute renal failureseems to be most consistent with a prerenal insult superimposed on baseline CKDhe relates stage IIImost likely prerenal insult due to chronically slightly inadequate p.o. fluid intake, combined with recent warm weather, exacerbated by being on an DEVONTE inhibitor. Has shown a degree of response overnight IV fluidscontinue fluids for now and continue to follow closely. No obstruction noted on imaging. Left elbow painseems most consistent with musculoskeletalan overuse tendinitis type fashion, possibly exacerbated by being a bit dehydrated. Voltaren gel for now. Follow. DVT prophylaxisheparin subcu otherwise as above Subjective Armando is an 78-year-old male with PMH of HLD, HTN, prostate cancer, left upper lobe lung cancer, COPD, and CKD. He presented on 06/24 for SOB x 1 month with an acute exacerbation on the evening of 06/23. Patient's (Maryann) is at the bedside and provides additional updates. Patient reports his breathing has been worse over the past month; he denies SOB at rest, and reports it is only with exertion. It is a bit worse when he lies flat on his back. Patient lives in [place], but returned to [place] 1 month ago. Reports his seasonal allergies/congestion have been exacerbated since moving back to [place], and his worsening breathing started around the same time. He has al so felt more fatigued from his workouts over the last month. His SOB is most notable with exertion, and he becomes significantly more SOB by exertion than normal for him. Discussed typical eating and exercise habits with patient. 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 - Apr 2024 - dx with COPD and started on Trelegy Ellipta and Albuterol inhaler prn - hx of prostate CA - Zytiga (an androgen kumar) and also reports that he takes prednisone daily - hx of cigarette smoking, quit 15 y ago Review of Systems Review of Systems: See HPI above Physical Exam Physical Exam: General: no acute distress; pleasant affect; non-toxic appearing; well- nourished; cooperative HEENT: normocephalic, atraumatic; no scleral icterus; vision and hearing grossly intact; moist mucous membranes Neck: supple; full ROM Skin: warm, no rashes, bruising, lesions, or erythema noted CV: RRR; S1/S2 normal; no murmurs/rubs/gallops; pulses intact and symmetric at DP and PT Lungs: no acute respiratory distress; symmetrical chest wall expansion; slightly distant but clear breath sounds across all lung payne w/o adventitious sounds; no wheezing ABD: Soft, NTP; no distention MSK: No bilateral LE edema Neuro: A&Ox3; essential tremor noted in bilateral hands; fluent speech; no focal deficits Psych: normal mood and affect Results & Data Vital Signs (Past 12 Hours) Vital Signs Temp Pulse Pulse Pulse Resp BP Pulse Ox 06/25/24 11:53 06/25/24 11:42 37.0 C 68 18 109/64 93 06/25/24 07:54 36.7 C 60 18 118/65 93 06/25/24 07:00 66 06/25/24 02:36 36.5 C 70 16 111/64 93 Pulse Ox Pulse Ox O2 Del Method O2 Flow Rate O2 Flow Rate 06/25/24 11:53 91 90 0 0 06/25/24 11:42 Room Air 06/25/24 07:54 Room Air 06/25/24 07:00 06/25/24 02:36 Room Air Laboratory Results 06/25/24 06/24/24 06/24/24 06:06 17:50 16:24 WBC 10.50 RBC 2.88 L Hgb 9.1 L Hct 28.3 L MCV 98.3 MCH 31.6 MCHC 32.2 RDW Std Deviation 54.3 H RDW Coeff of Aniceto 15.0 H Plt Count 108 L MPV 9.1 L Immature Gran % (Auto) 1.0 Neut % (Auto) 85.9 Lymph % (Auto) 4.2 [place] % (Auto) 7.7 Eos % (Auto) 1.0 Baso % (Auto) 0.2 Neut # (Auto) 9.01 H Lymph # (Auto) 0.44 L [place] # (Auto) 0.81 H Eos # (Auto) 0.11 Baso # (Auto) 0.02 Immature Gran # (Auto) 0.11 Absolute Nucleated RBC Nucleated RBC % (auto) PT INR APTT PTT Ratio D-Dimer VBG pH VBG pCO2 VBG pO2 VBG HCO3 VBG O2 Saturation VBG Base Excess Sodium 141 Potassium 4.2 Chloride 110 H Carbon Dioxide 25 Anion Gap 6 BUN 62 H Creatinine 3.10 H Est Cr Clr Drug Dosing 22.5 Est GFR ( Amer) 20.9 Est GFR (Non-Af Amer) 18.0 BUN/Creatinine Ratio 20.0 Glucose 84 Calcium 9.2 Magnesium 1.9 Troponin I High Sens 31.3 H D 57.4 H* B-Natriuretic Peptide Lipase Urine Color Yellow Urine Appearance Cloudy A Urine pH 5.5 Ur Specific Hoffman 1.019 Urine Protein 3+ H Urine Glucose (UA) 1+ H Urine Ketones Negative Urine Blood 3+ H Urine Nitrite Negative Urine Bilirubin Negative Urine Urobilinogen Negative Ur Leukocyte Esterase Negative Urine WBC (Auto) 0-5 Urine RBC (Auto) 0-2 U Hyaline Cast (Auto) 6-10 H U Epithel Cells (Auto) 6-10 H Urine Bacteria (Auto) None Seen SARS-CoV-2 (PCR) Influenza Type A (PCR) Influenza Type B (PCR) RSV (RT-PCR) 06/24/24 06/24/24 06/24/24 16:05 16:04 15:40 WBC 17.46 H RBC 3.32 L Hgb 10.6 L Hct 32.4 L MCV 97.6 MCH 31.9 MCHC 32.7 RDW Std Deviation 53.1 H RDW Coeff of Aniceto 14.9 H Plt Count 130 MPV 9.3 L Immature Gran % (Auto) 1.7 Neut % (Auto) 89.7 Lymph % (Auto) 2.3 [place] % (Auto) 5.9 Eos % (Auto) 0.2 Baso % (Auto) 0.2 Neut # (Auto) 15.64 H Lymph # (Auto) 0.41 L [place] # (Auto) 1.03 H Eos # (Auto) 0.04 Baso # (Auto) 0.04 Immature Gran # (Auto) 0.30 H Absolute Nucleated RBC 0.03 Nucleated RBC % (auto) 0.2 PT 11.1 INR 1.0 APTT 27 PTT Ratio 1.0 D-Dimer 3520 H* VBG pH 7.41 VBG pCO2 33 L VBG pO2 76 VBG HCO3 21 VBG O2 Saturation 92.6 VBG Base Excess -2.9 Sodium 139 Potassium 4.2 Chloride 108 H Carbon Dioxide 22 Anion Gap 9 BUN 68 H Creatinine 3.32 H Est Cr Clr Drug Dosing 20.6 Est GFR ( Amer) 19.2 Est GFR (Non-Af Amer) 16.6 BUN/Creatinine Ratio 20.5 H Glucose 94 Calcium 9.5 Magnesium Troponin I High Sens 57.4 H* B-Natriuretic Peptide 674 H Lipase 43 Urine Color Urine Appearance Urine pH Ur Specific Hoffman Urine Protein Urine Glucose (UA) Urine Ketones Urine Blood Urine Nitrite Urine Bilirubin Urine Urobilinogen Ur Leukocyte Esterase Urine WBC (Auto) Urine RBC (Auto) U Hyaline Cast (Auto) U Epithel Cells (Auto) Urine Bacteria (Auto) SARS-CoV-2 (PCR) NEGATIVE Influenza Type A (PCR) Negative Influenza Type B (PCR) Negative RSV (RT-PCR) Negative
--- NOTE | 2024-06-25 16:26 | Billing Data ---
Date of Service June 25, 2024 Coding Level of Care Code 02329 SUB INP/OBS CARE 3MIN
--- NOTE | 2024-06-25 16:27 | Billing Data ---
Date of Service June 25, 2024 Coding Level of Care Code 97883 SUB INP/OBS CARE 3MIN
[2024-06-25] MEDS: DICLOFENAC SOD 1% GEL 100 GM TUBE EXT SCH (16:59)
[2024-06-25] MEDS: MULTIVITAMIN TAB PO SCH (20:34)
[2024-06-25] MEDS: FLUTICASONE PROPIONATE NA SPR 16 GM BTL SCH (20:35)
[2024-06-26 06:45] LABS: Hematocrit (blood only) 28.7 % (42.0-52.0); Hemoglobin 9.2 g/dl (14.0-18.0); Mean Corpuscular Hemoglobin 31.2 pg (25.0-34.0); Mean Corpuscular Hgb Conc 32.1 g/dL (32.0-36.0); Mean Corpuscular Volume 97.3 fL (80.0-100.0); Platelet Count 107 K/uL (130-400); RDW Coefficient of Variation 14.7 % (11.5-14.5); RDW Standard Deviation 51.9 fL (36.4-46.3); Red Blood Count 2.95 M/uL (4.70-6.10)
[2024-06-26 06:48] LABS: Immature Granulocytes # (auto) 0.07 K/uL (0.01-0.20); Immature Granulocytes % (auto) 0.9 %; Lymphocytes # (auto) 0.29 K/uL (1.20-3.40); Lymphocytes % (auto) 3.6 %; Monocytes # (auto) 0.35 K/uL (0.11-0.59); Monocytes % (auto) 4.3 %; Neutrophils # (auto) 7.39 K/uL (1.40-6.50); Neutrophils % (auto) 91.2 %; Polychromasia 1+
[2024-06-26 06:51] LABS: BUN Creatinine Ratio 19.4 (10-20); Calcium 9.4 mg/dl (8.6-10.3); Creatinine Clr Calc Pharmacy 23.7 ml/min; Est GFR (African American) 22.3 ml/min; Est GFR (Non-African American) 19.2 ml/min; Potassium 4.1 mmol/L (3.5-5.1)
[2024-06-26] MEDS: AZITHROMYCIN 250 MG TAB PO SCH (07:59)
[2024-06-26] MEDS: predniSONE 20 MG TAB PO SCH (07:59)
--- NOTE | 2024-06-26 09:56 | Medical Student Progress Note ---
Date of Service June 26, 2024 Assessment & Plan (1) SOB (shortness of breath): Plan: - Worsening LAST x 1 month, acutely worsening over the last two weeks, with an acute exacerbation the evening of 06/23 - CXR on arrival without acute findings - Chest CT on admission with bilateral pulmonary nodules, largest at the left lung apex measuring 1.6 cm - per radiologist, recommended CT follow-up at 3-6 months; sees a health and fitness instructor. Emphysema and bronchial wall thickening. No consolidation - COVID, flu, RSV negative D-Dimer elevated at 3520, but can not obtain CTA in the setting of DEEJAY - Hx of unprovoked RLE DVT 30y ago; not currently on anticoagulation - Lower extremity dopplers negative for acute DVT - Would consider V/Q scan. However, given patient is not dyspneic, tachypneic, tachycardic, or hypoxic, low suspicion for PE. BNP levated at 674 (no prior for comparison) - patient does not have crackles/rales on exam, extremity edema, or otherwise appear to have symptoms of CHF. - Echocardiogram ordered - LV systolic function is normal, no regional wall motion abnormality, LVEF 60-65% Etiology of SOB seems to be d/t combination of COPD exacerbation and dehydration, likely in large part d/t the COPD. - COPD symptoms have been worsening since he returned to [place] from [place] about 1 month ago, acutely for the past two weeks per his daughter, and reports his seasonal allergies worsened at that time as well - Started azithromycin 250 mg QD, prednisone 40 mg QD, Fluticasone Furoate (Flonase) nasal spray on 06/25 - patient has shown improvement in SOB and nasal congestion, hence we will continue along same treatment course - Supplemental oxygen as needed - Continuous pulse oximetry - A.m. CBC, BMP - DVT PPx: SQ heparin q12h (2) Acute kidney injury superimposed on chronic kidney disease: Plan: Creatinine 3.32 on 06/24 --> 3.1 on 06/25 --> 2.9 on 06/26 (he reports that his baseline is around 1.9) Electrolytes stable Avoid nephrotoxic agents where possible Hx of kidney stones, but denies flank pain or new back pain A/P CT without contrast ordered - degenerative spine changes but no radiopaque kidney stones, concerning kidney masses, or other A/P findings Suspect patient's DEEJAY is largely driven by dehydration. - While he does consume about 70-80 oz of water per day, he works out a lot and has spent recent time outside in the warm temperatures. - Seeing as patient's Cr has improved with IVF, and he is not fluid overloaded, we will continue maintenance IVF with Lactated Ringer's 1,000 mls @ 125 mls/hr IV q8h. - Continue holding lisinopril - Continue management as above (3) Hematuria: Plan: 1 episode of urinary/fecal incontinence due to patient's inability get out of bed Not bulmaro incontinence Patient knew that he needed to use the restroom, but was unable to get up due to weakness/back pain UA 3+ blood on arrival Hgb 10.6 on arrival, 9.2 today though likely dilutional Patient reports he had blood clots in his urine on the evening of 06/23 - Patient has no radiopaque kidney stones on CT A/P - No lesions concerning for renal malignancy on CT A/P - Could be d/t UTI, but patient does not have dysuria or fever/chills/abdominal pain/nausea or other systemic signs worrisome for infection. He has remained stable and without any more episodes of bulmaro hematuria w/o abx, so we will not begin any UTI-targeted abx. - Within the next few months, patient should have cystoscopy performed as h ematuria could be d/t bladder malignancy (4) Leukocytosis: Plan: Leukocytosis 17.46 with neutrophil predominance on presentation 06/24; always afebrile --> improved to 10.5 on 06/25 then 8.10 06/26 may be secondary to chronic steroid use vs. COPD exacerbation UA negative for bacteria CXR and CT chest without acute findings, no concern for PNA Improved (5) Anemia: (6) Prostate cancer: (7) Hyperlipidemia: (8) Hypertension: (9) CKD (chronic kidney disease): (10) Elevated troponin: (11) Confusion: Plan: - Patient and family report one episode of loopiness/confusion over the last day - Advised that symptoms of delirium are very common in geriatric pts who are hospitalized - We will continue to monitor for symptoms (12) Elbow pain: Plan: - Reports some left-sided elbow pain - Suggested he use voltaren gel Plan Disposition: Admit to MedSurg telemetry Full code Heart healthy diet VTE PPx: SQ heparin q12h Admission and Anticipated Discharge Date Admission Date: June 24, 2024 Supervising Attestation I personally examined the patient and verified all redmond points of history and exam, discussed case, and agree with decision making with Dr Meeks and Olegario López MS4 feeling better. Notes that his breathing feels better at rest and he was walking around some and has less dyspnea on exertion. Overall breathing feels easier. Tolerating IV hydration well. Reviewed labs. He would like his oncol ogist silvanaI noted I would be happy to do sohe tried to call him on [facility] it went to [facility] and the mailbox was full, I later tried to call his office but unfortunately was after the regular hours had closed. Will continue to try to reach him. vitals noted, in general he is awake and alert pleasant no distress. HEENT normocephalic atraumatic mucous membranes moist. Breathing unlabored no accessory muscle use good effort. Skin without rashes pallor or icterus. Neuro without focal deficits. Dyspnea on exertionmost consistent with COPDand while his initial HPI made it sound like a worsening that started in April with a very long plateau, his daughter whenever we discussed the situation yesterday noted that she felt like he was looking far worse now than 2 weeks agowhich certainly fits more with a typical COPD exacerbation. Still trying to obtain PFTs from his health and fitness instructor in [place], and yet at the same time, he is already on Trelegy, and seems to be doing better on Zithromax, prednisone, and Flonase for the allergic component. Given that his symptoms are improving and his vitals are stablecontinue this course for now. Acute renal failureoverall most consistent with a prerenal insult superimposed on baseline CKD stage III, prerenal insult likely due to chronically slightly inadequate p.o. fluid intake, recent warm weather, exacerbated by being on an DEVONTE inhibitor. Slow but linear improvement on IV fluidscontinue fluids for now. Discussed the possibility of a mild degree of peripheral edema with ongoing IV fluidsencouraged activity, does not appear at risk for any true/worrisome volume overloadand to that end given his ongoing renal improvementwill continue fluids at the current rate at least into tomorrow. Left elbow painmost consistent with musculoskeletal, overuse tendinitis type fashion, possibly exacerbated by being dehydrated. Continue Voltaren gel. DVT prophylaxisheparin subcu family was not present whenever I was at the bedside, they were updated earlier by the rest of the team, and again we tried twice to get in touch with his oncologist in [facility] with the patient calling the doctor's personal cell phone from the bedside, and wants me trying to call his officewe will continue to try to reach him. Gissel Roberts is an 78-year-old male with PMH of HLD, HTN, prostate cancer, left upper lobe lung cancer, COPD, and CKD. He presented on 06/24 for SOB x 1 month with an acute exacerbation on the evening of 06/23. Today, reports his SOB is feeling improved at rest. He has not exerted himself to evaluate his SOB on exertion. He does report he walked a bit with OT yesterday. His daughters and are at bedside. Daughter reports he has had an episode of loopiness/lightheadedness over the past day - difficult to determine exact length of time/symptoms, but reports it was sometime between rounds yesterday and today. He also endorses new blurred vision when trying to read fine print. Endorses dry cough. His daughter also reports his symptoms of SOB have been acutely worsening for the last two weeks. No additional episodes of bulmaro hematuria. No dysuria. Review of Systems Review of Systems: See HPI above Physical Exam Physical Exam: General: no acute distress; pleasant affect; non-toxic appearing; well- nourished; cooperative HEENT: normocephalic, atraumatic; no scleral icterus; hearing grossly intact Neck: supple; full ROM Skin: warm, no rashes, bruising, lesions, or erythema noted CV: RRR; S1/S2 normal; no murmurs/rubs/gallops; pulses intact and symmetric at DP and PT Lungs: no acute respiratory distress; symmetrical chest wall expansion; slightly distant but clear breath sounds across all lung payne w/o adventitious sounds; no wheezing ABD: Soft, NTP; mild distention present but pt reports he just ate a lot for breakfast and this is normal for him s/p eating MSK: No bilateral LE edema Neuro: A&Ox3; essential tremor noted in bilateral hands; fluent speech; no focal deficits Psych: normal mood and affect Results & Data Vital Signs (Past 12 Hours) Vital Signs Temp Pulse Pulse Resp BP Pulse Ox O2 Del Method 06/26/24 07:31 36.7 C 67 18 153/77 H 92 Room Air 06/26/24 07:19 59 L 06/26/24 03:52 36.5 C 60 18 127/74 92 Room Air 06/26/24 02:08 67 06/25/24 23:43 36.6 C 66 18 126/65 91 Room Air Laboratory Results 06/26/24 05:48 WBC 8.10 RBC 2.95 L Hgb 9.2 L Hct 28.7 L MCV 97.3 MCH 31.2 MCHC 32.1 RDW Std Deviation 51.9 H RDW Coeff of Aniceto 14.7 H Plt Count 107 L MPV 9.0 L Immature Gran % (Auto) 0.9 Neut % (Auto) 91.2 Lymph % (Auto) 3.6 [place] % (Auto) 4.3 Eos % (Auto) 0.0 Baso % (Auto) 0.0 Neut # (Auto) 7.39 H Lymph # (Auto) 0.29 L [place] # (Auto) 0.35 Eos # (Auto) 0.00 Baso # (Auto) 0.00 Immature Gran # (Auto) 0.07 Polychromasia 1+ Sodium 140 Potassium 4.1 Chloride 110 H Carbon Dioxide 23 Anion Gap 7 BUN 57 H Creatinine 2.94 H Est Cr Clr Drug Dosing 23.7 Est GFR ( Amer) 22.3 Est GFR (Non-Af Amer) 19.2 BUN/Creatinine Ratio 19.4 Glucose 119 H Calcium 9.4
--- NOTE | 2024-06-26 18:01 | Billing Data ---
Date of Service June 26, 2024 Coding Level of Care Code 70736 SUB INP/OBS CARE 3MIN
[2024-06-27 07:48] LABS: Basophils # (auto) 0.01 K/uL (0.00-0.20); Basophils % (auto) 0.1 %; Eosinophils # (auto) 0.08 K/uL (0.00-0.50); Eosinophils % (auto) 0.9 %; Hemoglobin 9.2 g/dl (14.0-18.0); Immature Granulocytes # (auto) 0.09 K/uL (0.01-0.20); Immature Granulocytes % (auto) 1.1 %; Lymphocytes # (auto) 0.57 K/uL (1.20-3.40); Lymphocytes % (auto) 6.7 %; Mean Corpuscular Hemoglobin 31.1 pg (25.0-34.0); Mean Corpuscular Hgb Conc 32.9 g/dL (32.0-36.0); Mean Corpuscular Volume 94.6 fL (80.0-100.0); Mean Platelet Volume 9.2 fL (9.4-12.4); Monocytes # (auto) 0.53 K/uL (0.11-0.59); Monocytes % (auto) 6.3 %; Neutrophils # (auto) 7.17 K/uL (1.40-6.50); Neutrophils % (auto) 84.9 %; Platelet Count 111 K/uL (130-400); RDW Coefficient of Variation 14.2 % (11.5-14.5); RDW Standard Deviation 49.2 fL (36.4-46.3); Red Blood Count 2.96 M/uL (4.70-6.10); White Blood Count 8.45 K/ul (4.8-10.8)
[2024-06-27 08:08] LABS: BUN Creatinine Ratio 19.7 (10-20); Calcium 9.3 mg/dl (8.6-10.3); Creatinine Clr Calc Pharmacy 24.5 ml/min; Est GFR (African American) 23.2 ml/min; Potassium 3.9 mmol/L (3.5-5.1)
--- NOTE | 2024-06-27 12:54 | Medical Student Progress Note ---
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 Emphysema and bronchial wall thickening. No consolidation - COVID, flu, RSV negative D-Dimer elevated at 3520, but can not obtain CTA in the setting of DEEJAY - Hx of unprovoked RLE DVT 30y ago; not currently on anticoagulation - Lower extremity dopplers negative for acute DVT - Would consider V/Q scan. However, given patient is not dyspneic, tachypneic, tachycardic, or hypoxic, low suspicion for PE. BNP levated at 674 (no prior for comparison) - patient does not have crackles/rales on exam, extremity edema, or otherwise appear to have symptoms of CHF. - Echocardiogram ordered - LV systolic function is normal, no regional wall motion abnormality, LVEF 60-65% Etiology of SOB seems to be d/t combination of COPD exacerbation and dehydration, likely in large part d/t the COPD. - COPD symptoms have been worsening since he returned to [place] about 1 [place] ago, acutely for the past two weeks per his daughter, and reports his seasonal allergies worsened at that time as well - Started azithromycin 250 mg QD, prednisone 40 mg QD, Fluticasone Furoate (Flonase) nasal spray on 06/25 - patient has shown significant improvement in SOB and nasal congestion, hence we will continue along same treatment course - Stable in terms of his breathing/COPD - will plan for 5 day course of azithromycin and 5 day burst of prednisone, so would plan for last day of these mediations to be Friday 06/29; can continue flonase - Continuous pulse oximetry - A.m. CBC, BMP - DVT PPx: SQ heparin q12h (2) Acute kidney injury superimposed on chronic kidney disease: Plan: Creatinine 3.32 on 06/24 --> 3.1 on 06/25 --> 2.9 on 06/26 --> 2.8 on 06/27 (he reports that his baseline is around 1.9) Electrolytes stable Avoid nephrotoxic agents where possible Hx of kidney stones, but denies flank pain or new back pain A/P CT without contrast ordered - degenerative spine changes but no radiopaque kidney stones, concerning kidney masses, or other A/P findings Suspect patient's DEEJAY is largely driven by dehydration. - While he does consume about 70-80 oz of water per day, he works out a lot and has spent recent time outside in the warm temperatures. - Seeing as patient's Cr has improved with IVF, and he is not fluid overloaded, we will continue maintenance IVF with Lactated Ringer's 1,000 mls @ 125 mls/hr IV q8h. - Continue holding lisinopril - Would be comfortable discharging patient home with at least 90 oz hydration QD and follow up creatinine in about 3 days. We agreed he will stay through at least today 06/27 for further monitoring and IVF. Informed patient that he is stable for discharge and outpatient f/u should he want to leave. (3) Hematuria: Plan: 1 episode of urinary/fecal incontinence due to patient's inability get out of bed Not bulmaro incontinence Patient knew that he needed to use the restroom, but was unable to get up due to weakness/back pain UA 3+ blood on arrival Hgb 10.6 on arrival, 9.2 today though likely dilutional Patient reports he had blood clots in his urine on the evening of 06/23 - Patient has no radiopaque kidney stones on CT A/P - No lesions concerning for renal malignancy on CT A/P - Could be d/t UTI, but patient does not have dysuria or fever/chills/abdominal pain/nausea or other systemic signs worrisome for infection. He has remained stable and without any more episodes of bulmaro hematuria w/o abx, so we will not begin any UTI-targeted abx. - Within the next few months, patient should have cystoscopy performed as hematuria could be d/t bladder malignancy (4) Leukocytosis: Plan: Leukocytosis 17.46 with neutrophil predominance on presentation 06/24; always afebrile --> improved to 10.5 on 06/25 then 8.10 06/26 may be secondary to chronic steroid use vs. COPD exacerbation UA negative for bacteria CXR and CT chest without acute findings, no concern for PNA Improved (5) Anemia: (6) Prostate cancer: (7) Hyperlipidemia: (8) Hypertension: (9) CKD (chronic kidney disease): (10) Elevated troponin: (11) Confusion: Plan: - Patient and family report one episode of loopiness/confusion over the last day - Advised that symptoms of delirium are very common in geriatric pts who are hospitalized - We will continue to monitor for symptoms - No more episodes of confusion over the last day (06/27) (12) Elbow pain: Plan: - Reports some left-sided elbow pain - Suggested he use voltaren gel Plan Disposition: Admit to [facility] telemetry Full code Heart healthy diet VTE PPx: SQ heparin q12h Admission and Anticipated Discharge Date Admission Date: June 24, 2024 Supervising Attestation I personally examined the patient and verified all redmond points of history and exam, discussed case, and agree with decision making with Dr Meeks and Olegario López [facility] Feeling better. Breathing better. Dyspnea on exertion better. Updated family ( and daughter at the bedside) vitals noted, in general he is awake and alert pleasant no distress. HEENT normocephalic atraumatic mucous membranes moist. Breathing unlabored no accessory muscle use good effort. Skin without rashes pallor or icterus. Neuro without focal deficits. Dyspnea on exertionmost consistent with COPD improving nicely. Anticipate 5 days of azithromycin, 5-day burst of prednisone, Flonase, and baseline Trelegy. Probably home soon. Acute renal failureoverall most consistent with a prerenal insult superimposed on baseline CKD stage III, prerenal insult likely due to chronically slightly inadequate p.o. fluid intake, recent warm weather, exacerbated by being on an DEVONTE inhibitor. Ongoing improvement with IV fluids. Anticipate home in the near future. Left elbow painmost consistent with musculoskeletal, overuse tendinitis type fashion, possibly exacerbated by being dehydrated. Continue Voltaren gel. DVT prophylaxisheparin subcu Subjective Armando is an 78-year-old male with PMH of HLD, HTN, prostate cancer, left upper lobe lung cancer, COPD, and CKD. He presented on 06/24 for SOB x 1 month with an acute exacerbation on the evening of 06/23. His SOB has significantly improved at rest and exertion. His energy has improved significantly. His chest congestion is loosening up as well. Bringing up green/clear phlegm. His sinus congestion has improved with flonase. He has had no bulmaro hematuria or dysuria since being admitted. He has had no more episodes of loopiness/confusion. Denies fevers, chills, chest pain, abdominal pain, nausea, vomiting, diarrhea, new swelling, myalgias, arthralgias, dizziness, or vision changes. Endorses one episode of lightheadedness when sitting up in bed, which resolved on its own. Interested in utilizing steam therapy to improve breathing at home and pulmonary PT. Review of Systems Review of Systems: See HPI above Physical Exam Physical Exam: General: no acute distress; pleasant affect; non-toxic appearing; well- nourished; cooperative. Sitting up in chair eating breakfast. HEENT: normocephalic, atraumatic; no scleral icterus; hearing grossly intact Neck: supple; full ROM Skin: warm, no rashes, bruising, lesions, or erythema noted CV: RRR; S1/S2 normal; no murmurs/rubs/gallops; pulses intact and symmetric at DP and PT Lungs: no respiratory distress; symmetrical chest wall expansion; clear breath sounds across all lung payne w/o adventitious sounds; no wheezing ABD: Soft, NTP MSK: No bilateral LE edema Neuro: A&Ox3; fluent speech; no focal deficits Psych: normal mood and affect Results & Data Vital Signs (Past 12 Hours) Vital Signs Temp Pulse Pulse Resp BP BP Pulse Ox 06/27/24 11:22 36.5 C 59 L 18 111/65 91 06/27/24 08:08 36.5 C 63 18 167/88 H 93 06/27/24 06:53 56 L 06/27/24 02:45 36.8 C 61 16 145/78 H 93 O2 Del Method 06/27/24 11:22 Room Air 06/27/24 08:08 Room Air 06/27/24 06:53 06/27/24 02:45 Room Air Laboratory Results 06/27/24 07:17 WBC 8.45 RBC 2.96 L Hgb 9.2 L Hct 28.0 L MCV 94.6 MCH 31.1 MCHC 32.9 RDW Std Deviation 49.2 H RDW Coeff of Aniceto 14.2 Plt Count 111 L MPV 9.2 L Immature Gran % (Auto) 1.1 Neut % (Auto) 84.9 Lymph % (Auto) 6.7 [place] % (Auto) 6.3 Eos % (Auto) 0.9 Baso % (Auto) 0.1 Neut # (Auto) 7.17 H Lymph # (Auto) 0.57 L [place] # (Auto) 0.53 Eos # (Auto) 0.08 Baso # (Auto) 0.01 Immature Gran # (Auto) 0.09 Sodium 141 Potassium 3.9 Chloride 110 H Carbon Dioxide 24 Anion Gap 7 BUN 56 H Creatinine 2.84 H Est Cr Clr Drug Dosing 24.5 Est GFR ( Amer) 23.2 Est GFR (Non-Af Amer) 20.0 BUN/Creatinine Ratio 19.7 Glucose 93 Calcium 9.3
--- NOTE | 2024-06-27 18:43 | Billing Data ---
Date of Service June 27, 2024 Coding Level of Care Code 50991 SUB INP/OBS CARE MIN
--- NOTE | 2024-06-28 09:04 | Hospitalist Progress Note ---
Date of Service June 28, 2024 Assessment & Plan (1) SOB (shortness of breath): Plan: - Worsening LAST x 1 month, acutely worsening over the last two weeks, with an acute exacerbation the evening of 06/23 - CXR on arrival without acute findings - Chest CT on admission with bilateral pulmonary nodules, largest at the left lung apex measuring 1.6 cm - per radiologist, recommended CT follow-up at 3-6 months; sees a surg tech. Emphysema and bronchial wall thickening. No consolidation - COVID, flu, RSV negative D-Dimer elevated at 3520, but can not obtain CTA in the setting of DEEJAY - Hx of unprovoked RLE DVT 30y ago; not currently on anticoagulation - Lower extremity dopplers negative for acute DVT - Would consider V/Q scan. However, given patient is not dyspneic, tachypneic, tachycardic, or hypoxic, low suspicion for PE. BNP levated at 674 (no prior for comparison) - patient does not have crackles/rales on exam, extremity edema, or otherwise appear to have symptoms of CHF. - Echocardiogram ordered - LV systolic function is normal, no regional wall motion abnormality, LVEF 60-65% Etiology of SOB seems to be d/t combination of COPD exacerbation and dehydration, likely in large part d/t the COPD. - COPD symptoms have been worsening since he returned to [place] from [place] about 1 month ago, acutely for the past two weeks per his daughter, and reports his seasonal allergies worsened at that time as well - Started azithromycin 250 mg QD, prednisone 40 mg QD, Fluticasone Furoate (Flonase) nasal spray on 06/25 - patient has shown significant improvement in SOB and nasal congestion, hence we will continue along same treatment course - Stable in terms of his breathing/COPD - will plan for 5 day course of azithromycin and 5 day burst of prednisone, so would plan for last day of these mediations to be Friday 06/29; can continue flonase - Continuous pulse oximetry - A.m. CBC, BMP - DVT PPx: SQ heparin q12h (2) Acute kidney injury superimposed on chronic kidney disease: Plan: Creatinine 3.32 on 06/24 --> 3.1 on 06/25 --> 2.9 on 06/26 --> 2.8 on 06/27 (he reports that his baseline is around 1.9) Electrolytes stable Avoid nephrotoxic agents where possible Hx of kidney stones, but denies flank pain or new back pain A/P CT without contrast ordered - degenerative spine changes but no radiopaque kidney stones, concerning kidney masses, or other A/P findings Suspect patient's DEEJAY is largely driven by dehydration. - While he does consume about 70-80 oz of water per day, he works out a lot and has spent recent time outside in the warm temperatures. - Seeing as patient's Cr has improved with IVF, and he is not fluid overloaded, we will continue maintenance IVF with Lactated Ringer's 1,000 mls @ 125 mls/hr IV q8h. - Continue holding lisinopril - Would be comfortable discharging patient home with at least 90 oz hydration QD and follow up creatinine in about 3 days. We agreed he will stay through at least today 06/27 for further monitoring and IVF. Informed patient that he is stable for discharge and outpatient f/u should he want to leave. (3) Hematuria: Plan: 1 episode of urinary/fecal incontinence due to patient's inability get out of bed Not bulmaro incontinence Patient knew that he needed to use the restroom, but was unable to get up due to weakness/back pain UA 3+ blood on arrival Hgb 10.6 on arrival, 9.2 today though likely dilutional Patient reports he had blood clots in his urine on the evening of 06/23 - Patient has no radiopaque kidney stones on CT A/P - No lesions concerning for renal malignancy on CT A/P - Could be d/t UTI, but patient does not have dysuria or fever/chills/abdominal pain/nausea or other systemic signs worrisome for infection. He has remained stable and without any more episodes of bulmaro hematuria w/o abx, so we will not begin any UTI-targeted abx. - Within the next few months, patient should have cystoscopy performed as hematuria could be d/t bladder malignancy (4) Leukocytosis: Plan: Leukocytosis 17.46 with neutrophil predominance on presentation 06/24; always afebrile --> improved to 10.5 on 06/25 then 8.10 06/26 may be secondary to chronic steroid use vs. COPD exacerbation UA negative for bacteria CXR and CT chest without acute findings, no concern for PNA Improved (5) Anemia: (6) Prostate cancer: (7) Hyperlipidemia: (8) Hypertension: (9) CKD (chronic kidney disease): (10) Elevated troponin: (11) Confusion: Plan: - Patient and family report one episode of loopiness/confusion over the last day - Advised that symptoms of delirium are very common in geriatric pts who are hospitalized - We will continue to monitor for symptoms - No more episodes of confusion over the last day (06/27) (12) Elbow pain: Plan: - Reports some left-sided elbow pain - Suggested he use voltaren gel Plan Disposition: Admit to [facility] telemetry Full code Heart healthy diet VTE PPx: SQ heparin q12h Admission and Anticipated Discharge Date Admission Date: June 24, 2024 Physical Exam Physical Exam: General: no acute distress; pleasant affect; non-toxic appearing; well- nourished; cooperative. Sitting up in chair eating breakfast. HEENT: normocephalic, atraumatic; no scleral icterus; hearing grossly intact Neck: supple; full ROM Skin: warm, no rashes, bruising, lesions, or erythema noted CV: RRR; S1/S2 normal; no murmurs/rubs/gallops; pulses intact and symmetric at DP and PT Lungs: no respiratory distress; symmetrical chest wall expansion; clear breath sounds across all lung payne w/o adventitious sounds; no wheezing ABD: Soft, NTP MSK: No bilateral LE edema Neuro: A&Ox3; fluent speech; no focal deficits Psych: normal mood and affect Results & Data Results & Data Vital Signs (Past 12 Hours) Vital Signs Temp Pulse Pulse Resp BP BP Pulse Ox 06/28/24 07:30 36.7 C 64 18 154/76 H 92 06/28/24 07:00 53 L 06/28/24 02:53 36.6 C 59 L 16 141/69 H 96 06/27/24 22:56 36.5 C 69 18 130/67 95 06/27/24 21:56 61 O2 Del Method 06/28/24 07:30 Room Air 06/28/24 07:00 06/28/24 02:53 Room Air 06/27/24 22:56 Room Air 06/27/24 21:56
[2024-06-28 09:45] LABS: BUN Creatinine Ratio 20.2 (10-20); Calcium 9.2 mg/dl (8.6-10.3); Creatinine Clr Calc Pharmacy 26.1 ml/min; Est GFR (Non-African American) 21.6 ml/min; Potassium 3.6 mmol/L (3.5-5.1)
--- NOTE | 2024-06-28 11:34 | Discharge Summary ---
Date of Service June 28, 2024 Admission HPI Per Admitting Provider Armando is a pleasant 78-year-old male with PMH of HLD, HTN, prostate cancer, left upper lobe lung cancer, COPD, and CKD. He presented on 06/24 for SOB x 1 month with an acute exacerbation on the evening of 06/23. Patient's (Maryann) is at the bedside and provides additional updates. She reports that his breathing worsened around 9 PM. He then experienced an episode of bowel/urinary incontinence while in bed around 3 AM; patient reportedly woke up in bed and felt the urge to go, but felt his body was too weak to get up. Patient reports his breathing has been worse over the past month; he denies SOB at rest, and reports it is only with exertion. It is not worse when he lies flat on his back. Patient lives in [place], but returned to [place] 1 month ago. 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 Patient has all his labs drawn in [place], and believes that his creatinine baseline is around 1.9. He was also recently diagnosed with COPD (PFTs in [place]), and has been on 2 inhalers since around April 12. He denies being around any sick contacts recently. No supplemental oxygen at baseline. No CPAP at night. Patient did not take his regular morning medications today; no recent change in medications. He does take Zytiga (an androgen kumar) for his prostate cancer, and also reports that he takes prednisone daily for the Zytiga. He is a former current tobacco cigarette smoker; quit 15 years ago. No recent alcohol use. No recent change in diet; patient does not watch his salt intake, but denies any recent changes in weight. He does have a history of kidney stones, with the last been being around 20 years ago. He has chronic lower back pain; no recent change in back pain. No saddle anesthesia. 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 No history of IA or CHF to his knowledge; he does have heart stents and takes aspirin daily. Reports compliance with this. Patient's vitals are stable at time admission. ED course: ROS: Patient endorses essential tremor (chronic, but worse the past 24h), lightheaded with walking, fatigue, worsening LAST, one episode of urinary/fecal incontinence, lower back pain (chronic; not new, per patient), blood clot in urine, and mild b/l leg swelling. Patient denies fever, chills, night-sweats, dizziness, headache, changes in vision, chest pain, SOB, cough, pleuritic CP, hemoptysis, abdominal pain, N/V/D, blood in stool, saddle anesthesia, or erythema/numbness/tingling in the legs. Admission Exam Per Admitting Provider General: no acute distress; pleasant affect; non-toxic appearing; well- nourished; cooperative; SpO2 93% on RA HEENT: normocephalic, atraumatic; no scleral icterus; PERRLA; vision and hearing grossly intact Neck: supple; no lymphadenopathy; trachea midline Skin: warm, dry without signs of tenting; no cyanosis; no rashes, bruising, lesions, or erythema noted CV: chest wall NTP; RRR; S1/S2 normal; no murmurs/rubs/gallops; pulses intact and symmetric at radial, DP, and PT Lungs: no acute respiratory distress; symmetrical chest wall expansion; clear breath sounds across all lung payne w/o adventitious sounds; no wheezing ABD: Soft, NTP; BS present; no rebound/guarding; no distention MSK: no tics or fasciculations; left calf/ankle is slightly more swollen than the right, nonerythematous Neuro: A&Ox3; essential tremor noted in the left hand; normal mood and affect; fluent speech; no focal deficits; sensation grossly intact in the LEs b/l Principal Diagnosis COPD exacerbation Discharge Data Allergies Allergy/AdvReac Type Severity Reaction Status Date / Time regadenoson [From Lexiscan] Allergy Severe Anaphylaxis Verified 06/24/24 19:33 Sulfa (Sulfonamide Allergy Unknown UNKNOWN Verified 06/24/24 19:30 Antibiotics) Consultations 06/24/24 17:24 ED Decision to Admit Stat Ordered Studies 06/24/24 18:18 CT Abd and Pelvis [CT abd pelvis wo con] Stat CT chest diagnostic wo con Stat 06/24/24 18:20 US venous doppler LE BI Stat Hospital Course (1) SOB (shortness of breath): (2) Acute kidney injury superimposed on chronic kidney disease: (3) Hematuria: (4) Leukocytosis: (5) Anemia: (6) Prostate cancer: (7) Hyperlipidemia: (8) Hypertension: (9) CKD (chronic kidney disease): (10) Elevated troponin: (11) Confusion: (12) Elbow pain: Total Time Total Time Spent Total Time Spent (In Minutes): as per attending Discharge Plan Discharge Items Patient Disposition: Home - Self-Care Reason For Visit: SOB, HEMATURIA Discharge Diagnosis: COPD exacerbation Activity: Resume your previous activity Non-emergency contact: Primary Care Provider Call non-emergency contact if: you have any medication questions and your symptoms worsen Follow-up/Referrals: Lucille Rodriguez MD [Primary Care Provider] - Diet: Carb Consistent or DM2 Addtl Attending Provider Instructions: shortness of breath/COPD -As we discussed, your symptoms as well as physical exam findings fit far and away the most with a COPD exacerbation. It sounds like the COPD has been in someway or another flared up for a good bit of the summer, but worse in the weeks leading up to admission - lots of different things can flareup COPDin your context, it is most likely that the worsening since April was largely environmental (especially after you came back to [place]), and the abrupt worsening a few weeks prior to getting admitted was almost certainly a viral process (think: Kind of like a bronchitis) - fortunately things are improving. The "simplest" way to manage a COPD exacerbation is with a 5-day burst of prednisonefor now that is what we will doand tomorrow would be the last day of the 5-day burst. To that end, take 40 mg of prednisone tomorrow, and then Sunday resume your regular dose. Typically people get better after a 5-day burst, but if you need more of a "old school taper" we would see this if your breathing/cough/etc. seems to worsen again by . If that happens at all, call Dr. Cifuentes she could then get you back on prednisone with a longer taper. (As we discussed, however, given how quickly you are getting better, it would be nice to keep things simpler for you with the burst). - Similarly, because azithromycin has a unique anti-inflammatory effect on the lungs, we will finish out 5 days of azithromycintomorrow is day 5 of that as well. There were no findings consistent with infection otherwise, so a broader or longer course of antibiotics did not at all look necessary, fortunately. - As far as "baseline management" of COPD your Trelegy inhaler once a day is generally fantastic management, and you can use the albuterol "rescue inhaler" up to every 4 hours as needed for chest tightness/shortness of breath that comes up and spite of the Trelegy. - Given that there seems to be a bit of an environmental/allergic component as well, we have switched you over to Flonase twice a day instead of an antihistamine. This is mostly because medications like Flonase tend to be more effective than the antihistamines anyway, but also it removes any potential for drug interactions, or antihistamine mediated delirium. If the Flonase alone is not enough, Dr. Rodriguez can work with you with other things to suppress allergic overlay on COPD (there are a lot of different ways to do thisbut just as an example something like Singulair) renal failure - as we discussed, this really appears to have mostly been a subacute/chronic dehydration superimposed on your baseline stage IIIb chronic kidney disease. Your creatinine has improved to 2.67 - while you hydrate better than probably 90% of my older patients that I take care of, you also exercise harder than about 99% of them. I suspect you are still coming up short on hydrationespecially whenever it relates to exertion. While you can definitely be more specific, and easy "rule of thumb" would be 60- 80 ounces of fluid as you are "maintenance requirement" on a typical day, with an additional 5-10 ounces per hour of exercise, or time outside in the heat. - Will want Dr. Rodriguez to follow labs, and probably for the short-term future have a BMP checked more or less weekly to keep an eye on things and make sure your numbers stay stable -While DEVONTE inhibitor medicines like lisinopril generally are quite protective of kidneys, in times where we have had a "dehydration insult" the way they lower pressure in the kidneys can interrupt blood flow a little bit. Because of this, we will want you to not take your lisinopril until Dr. Rodriguez let you know it is okay to resume (largely once your kidney numbers have gotten back to baseline in follow-up lab work). Please note, there is really nowhere in the computer system to change medication on your medicine reconciliation sheet to a status of "hold until directed otherwise"so the med rec sheet does say to continue taking the lisinoprilhold off until you are told to restart it. hematuria (blood in urine) - passing the blood clot in your urine prior to admission obviously was not at all normal, but we are not seeing anything overtly concerning at this time. Typically the "big bad ugly" reasons that someone would be blood would be infection (but nothing about your situation has been consistent with a urinary tract infection, and the blood cleared on its own), kidney stones (but nothing about your situation, symptoms, or imaging was consistent with a rosalee who was passing kidney stones), or cancers (and the radiologist did not see anything concerning for cancers in your kidneys, ureters, or bladderso even if it was a cancer causing the bleeding, it would probably be a more or less "simple" bladder tumorwhich is why we would recommend having a cystoscopy (bladder scope) done sometime in the near future (not emergentlybut as a "arbitrary line" probably between now and early August just so that it does not "slip through the cracks")but truthfully, a lot of blood in the urine is very nonspecific without a "big bad ugly" causeand that is what this appears most consistent with. elbow pain - fortunately nothing examined swollen/significantly inflamed/etc.it really seems most consistent with an extensor tendinitis, probably from exercise compounded by dehydration. I would continue to use Voltaren gel 34 times a day for the next week. If that does not seem to be improving things, when you follow-up with Dr. Rodriguez, she can evaluate further. To Do: - take 40mg prednisone tomorrow and then go back to your regular dosing sunday - Take 250 mg azithromycin tomorrow and then stop - take flonase twice a day indefinitely (or at least indefinitely when you're in [place]) - follow your breathing symptoms and if things were at all to worsen by midweek again, call Dr. Rodriguez' office to get back on prednisone as more of a prolonged taper - have follow-up lab work (basic metabolic panel) checked this week at Dr. Rodriguez' office, and then periodically (but a bit more frequently for the short-term) thereafter - don't take lisinopril until Dr Rodriguez says to restart it - get set up with urology for a cystoscopy in the near future Pending Studies at Discharge: No Stand-Alone Forms: My [facility], Smoking Cessation Medications and DC Order Prescriptions: New azithromycin 250 mg Tablet 250 mg PO QAM Qty: 1 0RF prednisone 20 mg Tablet 40 mg PO DAILY Qty: 1 0RF fluticasone propionate 50 mcg/actuation Roberts,Suspension 1 spray NA BID Qty: 1 0RF Continued lisinopril 20 mg tablet 20 mg PO BID Qty: 60 2RF aspirin 81 mg tablet,delayed release (DR/EC) 81 mg PO DAILY Qty: 30 2RF cholecalciferol (vitamin D3) 25 mcg (1,000 unit) capsule 25 mcg PO DAILY Qty: 30 0RF ascorbic acid (vitamin C) 1,000 mg tablet 1 g PO Q6H Qty: 120 0RF omega 4-aeg-zdr-fish oil [Fish Oil] 1,200 (144-216) mg capsule 1 cap PO DAILY Qty: 30 0RF ferrous sulfate [FeroSul] 325 mg (65 mg iron) tablet 325 mg PO DAILY Qty: 30 0RF Centrum Silver 0.4-300-250 mg-mcg-mcg tablet 1 tab PO DAILY Qty: 30 0RF albuterol sulfate 90 mcg/actuation HFA aerosol inhaler 2 puff INHALATION Q4H PRN (Reason: wheezing/SOB) rosuvastatin 20 mg tablet 20 mg PO DAILY omeprazole-sodium bicarbonate [Zegerid OTC] 20-1.1 mg-gram Capsule 1 cap PO DAILY nebivolol 20 mg tablet 20 mg PO DAILY coQ10 (ubiquinol) 200 mg Capsule 200 mg PO DAILY dapagliflozin propanediol [Farxiga] 10 mg Tablet 0 mg PO HS Rx Instructions: Per Spouse: "I think he takes 20mg by mouth at bedtime." Trelegy Ellipta 200-62.5-25 mcg blister with device 1 inh INHALATION DAILY clonidine HCl 0.1 mg tablet 0.1 mg PO BID amlodipine [Norvasc] 5 mg tablet 5 mg PO BID Discharge Orders: Discharge Order (Routine); Ordered 06/28/24 Ordered By: Lucius Leach Admission Data Admit Date/Time: 06/24/24 19:01 Attending Provider: Hany,Lucius R Admit Provider: Adriano Sanchez Primary Care Provider: Lucille Rodriguez Other Providers: Adriano Sanchez Other Interventions: Discharge Summary Assessment (RN) Last Done: 06/28/24 11:25 Resident Activity Tracking Resident Involvement: Resident Care Provided Care Provided: Adult Hospital Medicine
--- NOTE | 2024-06-28 18:09 | Discharge Summary ---
Discharge Summary Date of Service June 28, 2024 Principal Dx & Hospital Course #1 = Principal Diagnosis (1) SOB (shortness of breath): Most consistent with COPD exacerbation5-day burst of prednisone (discussed with watch for as far as any relapse) finish 5 days of azithromycin, continue Trelegy and albuterol as needed, add Flonase twice daily. Discussed return to regular activities (2) Acute kidney injury superimposed on chronic kidney disease: most consistent with a prerenal insult, given his slow improvement it is possible he had a degree of ATN as well, but fortunately creatinine clearance has improved quite nicely and is almost at his baseline range (baseline stage IIIb CKD)p.o. hydration, outpatient labs in 2-3 days. Ongoing follow-up thereafter. Hold DEVONTE inhibitor for now. Safe/stable for home (3) Hematuria: nothing consistent with ureterolithiasis, nothing consistent with infection, no renal cancers noted on CT scancertainly could be bladder wall malignancy, outpatient cystoscopy to be done in the near futurebut at the same time cleared very quicklyno ominous pathology likely at play. Discussed with patient outpatient urology follow-up for cystoscopy, otherwise no intervention necessary at this time. (4) Leukocytosis: Improved without treatmentlikely was demargination (5) Anemia: (6) Prostate cancer: (7) Hyperlipidemia: (8) Hypertension: (9) CKD (chronic kidney disease): (10) Elevated troponin: (11) Elbow pain: seems most consistent with overuse tendinitisprobably worsened by dehydrationVoltaren gel Plan safe/stable for home Notes For Next Care Provider Medication Changes From Visit finishing 5-day burst of prednisone and azithromycin, lisinopril temporarily on hold, Flonase added Admission HPI Per Admitting Provider Armando is a pleasant 78-year-old male with PMH of HLD, HTN, prostate cancer, left upper lobe lung cancer, COPD, and CKD. He presented on 06/24 for SOB x 1 month with an acute exacerbation on the evening of 06/23. Patient's (Maryann) is at the bedside and provides additional updates. She reports that his breathing worsened around 9 PM. He then experienced an episode of bowel/urinary incontinence while in bed around 3 AM; patient reportedly woke up in bed and felt the urge to go, but felt his body was too weak to get up. Patient reports his breathing has been worse over the past month; he denies SOB at rest, and reports it is only with exertion. It is not worse when he lies flat on his back. Patient lives in [place], but returned to [place] 1 month ago. 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 Patient has all his labs drawn in [place], and believes that his creatinine baseline is around 1.9. He was also recently diagnosed with COPD (PFTs in [place]), and has been on 2 inhalers since around April 12. He denies being around any sick contacts recently. No supplemental oxygen at baseline. No CPAP at night. P brandyn did not take his regular morning medications today; no recent change in medications. He does take Zytiga (an androgen kumar) for his prostate cancer, and also reports that he takes prednisone daily for the Zytiga. He is a former current tobacco cigarette smoker; quit 15 years ago. No recent alcohol use. No recent change in diet; patient does not watch his salt intake, but denies any r ecent changes in weight. He does have a history of kidney stones, with the last been being around 20 years ago. He has chronic lower back pain; no recent change in back pain. No saddle anesthesia. 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 No history of IN or CHF to his knowledge; he does have heart stents and takes aspirin daily. Reports compliance with this. Patient's vitals are stable at time admission. ED course: ROS: Patient endorses essential tremor (chronic, but worse the past 24h), lightheaded with walking, fatigue, worsening LAST, one episode of urinary/fecal incontinence, lower back pain (chronic; not new, per patient), blood clot in urine, and mild b/l leg swelling. Patient denies fever, chills, night-sweats, dizziness, headache, changes in vision, chest pain, SOB, cough, pleuritic CP, hemoptysis, abdominal pain, N/V/D, blood in stool, saddle anesthesia, or erythema/numbness/tingling in the legs. Updated Medication List Medication Instructions Recorded Confirmed Type ascorbic acid (vitamin C) 1,000 mg 1 g PO Q6H #120 tabs 08/25/21 06/24/24 Rx tablet aspirin 81 mg tablet,delayed 81 mg PO DAILY #30 tabs 08/25/21 06/24/24 Rx release cholecalciferol (vitamin D3) 25 25 mcg PO DAILY #30 caps 08/25/21 06/24/24 Rx mcg (1,000 unit) capsule ferrous sulfate 325 mg (65 mg 325 mg PO DAILY #30 tabs 08/25/21 06/24/24 Rx iron) tablet (FeroSul) lisinopril 20 mg tablet 20 mg PO BID #60 tabs 08/25/21 06/24/24 Rx hpjdhclz-lzw-mimeb acid 0.4 1 tab PO DAILY #30 tabs 08/25/21 06/24/24 Rx mg-lycopene 300 mcg-lutein 250 mcg tablet (Centrum Silver) omega 5-sxu-sar-fish oil 1,200 mg 1 cap PO DAILY #30 caps 08/25/21 06/24/24 Rx (144 mg-216 mg) capsule (Fish Oil) albuterol sulfate 90 mcg/actuation 2 puff inhalation Q4H PRN 06/24/24 06/24/24 History aerosol inhaler wheezing/SOB amlodipine 5 mg tablet (Norvasc) 5 mg PO BID 06/24/24 06/24/24 History clonidine HCl 0.1 mg tablet 0.1 mg PO BID 06/24/24 06/24/24 History coQ10 (ubiquinol) 200 mg capsule 200 mg PO DAILY 06/24/24 06/24/24 History dapagliflozin propanediol 10 mg 0 mg PO HS 06/24/24 06/24/24 History tablet (Farxiga) fluticasone fur. 200 mcg-umeclid 1 inh inhalation DAILY 06/24/24 06/24/24 History 62.5 mcg-vilant 25 mcg inhalat.powder (Trelegy Ellipta) nebivolol 20 mg tablet 20 mg PO DAILY 06/24/24 06/24/24 History omeprazole 20 mg-sodium 1 cap PO DAILY 06/24/24 06/24/24 History bicarbonate 1.1 gram capsule (Zegerid OTC) rosuvastatin 20 mg tablet 20 mg PO DAILY 06/24/24 06/24/24 History azithromycin 250 mg tablet 250 mg PO QAM #1 tab 06/28/24 Rx fluticasone propionate 50 1 spray NA BID #1 btl 06/28/24 Rx mcg/actuation nasal spray,suspension prednisone 20 mg tablet 40 mg (2 x 20 mg) PO DAILY #1 tab 06/28/24 Rx Hospital Stay Data Consultations 06/24/24 17:24 ED Decision to Admit Stat Diagnostic Imagining Performed 06/24/24 18:18 CT Abd and Pelvis [CT abd pelvis wo con] Stat CT chest diagnostic wo con Stat 06/24/24 18:20 US venous doppler LE BI Stat Pending Results Patient Have Any Pending Studies at Discharge: No Discharge Instructions Given to Patient (Per Discharging Provider) shortness of breath/COPD -As we discussed, your symptoms as well as physical exam findings fit far and away the most with a COPD exacerbation. It sounds like the COPD has been in so meway or another flared up for a good bit of the summer, but worse in the weeks leading up to admission - lots of different things can flareup COPDin your context, it is most likely that the worsening since April was largely environmental (especially after you came back to [place]), and the abrupt worsening a few weeks prior to getting admitted was almost certainly a viral process (think: Kind of like a bronchitis) - fortunately things are improving. The "simplest" way to manage a COPD exacerbation is with a 5-day burst of prednisonefor now that is what we will doand tomorrow would be the last day of the 5-day burst. To that end, take 40 mg of prednisone tomorrow, and then Sunday resume your regular dose. Typically people get better after a 5-day burst, but if you need more of a "old school taper" we would see this if your breathing/cough/etc. seems to worsen again by . If that happens at all, call Dr. Cifuentes she could then get you back on prednisone with a longer taper. (As we discussed, however, given how quickly you are getting better, it would be nice to keep things simpler for you with the burst). - Similarly, because azithromycin has a unique anti-inflammatory effect on the lungs, we will finish out 5 days of azithromycintomorrow is day 5 of that as well. There were no findings consistent with infection otherwise, so a broader or longer course of antibiotics did not at all look necessary, fortunately. - As far as "baseline management" of COPD your Trelegy inhaler once a day is generally fantastic management, and you can use the albuterol "rescue inhaler" up to every 4 hours as needed for chest tightness/shortness of breath that comes up and spite of the Trelegy. - Given that there seems to be a bit of an environmental/allergic component as well, we have switched you over to Flonase twice a day instead of an antihistamine. This is mostly because medications like Flonase tend to be more effective than the antihistamines anyway, but also it removes any potential for drug interactions, or antihistamine mediated delirium. If the Flonase alone is not enough, Dr. Rodriguez can work with you with other things to suppress allergic o verlay on COPD (there are a lot of different ways to do thisbut just as an example something like Singulair) renal failure - as we discussed, this really appears to have mostly been a subacute/chronic dehydration superimposed on your baseline stage IIIb chronic kidney disease. Your creatinine has improved to 2.67 - while you hydrate better than probably 90% of my older patients that I take care of, you also exercise harder than about 99% of them. I suspect you are still coming up short on hydrationespecially whenever it relates to exertion. While you can definitely be more specific, and easy "rule of thumb" would be 60- 80 ounces of fluid as you are "maintenance requirement" on a typical day, with an additional 5-10 ounces per hour of exercise, or time outside in the heat. - Will want Dr. Rodriguez to follow labs, and probably for the short-term future have a BMP checked more or less weekly to keep an eye on things and make sure your numbers stay stable -While DEVONTE inhibitor medicines like lisinopril generally are quite protective of kidneys, in times where we have had a "dehydration insult" the way they lower pressure in the kidneys can interrupt blood flow a little bit. Because of this, we will want you to not take your lisinopril until Dr. Rodriguez let you know it is okay to resume (largely once your kidney numbers have gotten back to baseline in follow-up lab work). Please note, there is really nowhere in the computer system to change medication on your medicine reconciliation sheet to a status of "hold until directed otherwise"so the med rec sheet does say to continue taking the lisinoprilhold off until you are told to restart it. hematuria (blood in urine) - passing the blood clot in your urine prior to admission obviously was not at all normal, but we are not seeing anything overtly concerning at this time. Typically the "big bad ugly" reasons that someone would be blood would be infection (but nothing about your situation has been consistent with a urinary tract infection, and the blood cleared on its own), kidney stones (but nothing about your situation, symptoms, or imaging was consistent with a rosalee who was passing kidney stones), or cancers (and the radiologist did not see anything concerning for cancers in your kidneys, ureters, or bladderso even if it was a cancer causing the bleeding, it would probably be a more or less "simple" bladder tumorwhich is why we would recommend having a cystoscopy (bladder scope) done sometime in the near future (not emergentlybut as a "arbitrary line" probably between now and early August just so that it does not "slip through the cracks")but truthfully, a lot of blood in the urine is very nonspecific without a "big bad ugly" causeand that is what this appears most consistent with. elbow pain - fortunately nothing examined swollen/significantly inflamed/etc.it really seems most consistent with an extensor tendinitis, probably from exercise compounded by dehydration. I would continue to use Voltaren gel 34 times a day for the next week. If that does not seem to be improving things, when you follow-up with Dr. Rodriguez, she can evaluate further. To Do: - take 40mg prednisone tomorrow and then go back to your regular dosing sunday - Take 250 mg azithromycin tomorrow and then stop - take flonase twice a day indefinitely (or at least indefinitely when you're in [place]) - follow your breathing symptoms and if things were at all to worsen by midweek again, call Dr. Rodriguez' office to get back on prednisone as more of a prolonged taper - have follow-up lab work (basic metabolic panel) checked this week at Dr. Rodriguez' office, and then periodically (but a bit more frequently for the short-term) thereafter - don't take lisinopril until Dr Rodriguez says to restart it - get set up with urology for a cystoscopy in the near future Total Time Total Time Spent Total Time Spent (In Minutes): >30
--- NOTE | 2024-06-28 18:09 | Billing Data ---
Date of Service June 28, 2024 Coding Level of Care Code 41571 INP/OBS DISCH >30 MIN
== END 2024-06-28 12:41 | disposition home or self-care (01) | DRG 190 ==
LOC: ED 15:09 → SUATTDRO 19:01 → 2W 19:01